=== PATIENT | male | born 1930 | race Caucasian/White ===

== ENCOUNTER 2016-07-28 00:06 | Inpatient (IN) | payer MEDICARE, BC ==
[2016-07-28] VITALS (9 sets, daily range): BP systolic 117–176; BP diastolic 69–107; PULSE 50–72; RESP 16–18; TEMP 95.3–98.1; O2SAT 95–100
[~2016-07-28] VITALS: Ht 175.3 cm; Wt 64.0 kg
[~2016-07-28 00:06] MED LIST: ASPI81 PO; CLIN1CAP6 PO; CLOP75 PO; DORZO2%O EACH EYE; LORTA5 PO; METO25 PO; METR-1 PO; PROT40TA PO; SIMV20TA PO; SUCR1S PO
[2016-07-28] MEDS ORDERED: MORP1TAB24 PO (00:11)
[2016-07-28] MEDS ORDERED: METO25TA3 PO (00:12)
[2016-07-28] MEDS ORDERED: OMEP20TA PO (00:12)
[2016-07-28] MEDS ORDERED: MORPHINE SULFATE 8 MG/ML INJ IV PUSH ONE (00:30)
--- NOTE | 2016-07-28 00:54 | RADRPT ---
EXAM DATE/TIME: 07/28/2016 00:30 [facility] COMPARISON: No previous studies available for comparison. INDICATIONS : Patient states they fell today getting off of toilet. Left hip pain. MEDICAL HISTORY : None. SURGICAL HISTORY : None. ENCOUNTER: Initial ACUITY: 1 day PAIN SCORE: 9/10 LOCATION: Left Hip FINDINGS: Intertrochanteric fracture of the hip is identified. The femoral head is not dislocated. No other fra ctures are identified. Soft tissue structures are intact. There are findings of previous left hernia repair. CONCLUSION: 1. Intertrochanteric fracture left hip Alirio Ibarra MD on July 28, 2016 at 0:52 Board Certified Radiologist. This report was verified electronically.
[2016-07-28] MEDS ORDERED: SODIUM CHLORIDE 0.9% FLUSH 5 ML FLUSH IVF PRN ×2 (01:15→12:30)
[2016-07-28 01:29] LABS: AUTOMATED NEUTROPHIL # 6.8 TH/MM3 (1.8-7.7); BASOPHIL % 0.5 % (0.0-2.0); EOSINOPHIL # 0.1 TH/MM3 (0-0.4); EOSINOPHIL % 1.2 % (0.0-4.0); HEMATOCRIT 28.5 % (39.0-51.0); LYMPH % 8.1 % (9.0-44.0); LYMPHOCYTE # 0.7 TH/MM3 (1.0-4.8); MEAN CELL VOLUME 77.8 FL (80.0-100.0); MEAN CORPUSCULAR HEMOGLOBIN 25.5 PG (27.0-34.0); MEAN CORPUSCULAR HGB CONC 32.7 % (32.0-36.0); MONO % 15.3 % (0.0-8.0); NEUT % 74.9 % (16.0-70.0); PLATELET COUNT 228 TH/MM3 (150-450); RED BLOOD COUNT 3.67 MIL/MM3 (4.50-5.90); RED CELL DISTRIBUTION WIDTH 25.7 % (11.6-17.2)
[2016-07-28 01:30] LABS: HEMO FLAGS AUTO DIFF
[2016-07-28 01:35] LABS: APTT (PATIENT) 31.4 SEC (24.3-30.1); INTERNATIONAL NORMALIZED RATIO 1.1 RATIO; PROTHROMBIN TIME - PATIENT 12.6 SEC (9.8-11.6)
[2016-07-28 01:42] LABS: BICARBONATE 26.6 MEQ/L (21.0-32.0); MAGNESIUM 1.7 MG/DL (1.5-2.5); POTASSIUM 4.1 MEQ/L (3.5-5.1)
[2016-07-28 02:07] LABS: ACANTHOCYTES OCC (NORMAL); OVALOCYTES 1+ (NORMAL); PLATELET ESTIMATE SMEAR NORMAL (NORMAL); PLATELET MORPHOLOGY NORMAL (NORMAL); SCAN/DIFF AUTO DIFF CONFIRMED
--- NOTE | 2016-07-28 02:15 | RADRPT ---
EXAM DATE/TIME: 07/28/2016 01:18 [facility] COMPARISON: CHEST SINGLE AP, March 06, 2016, 9:49. INDICATIONS : Evaluate for pneumonia, pneumothorax, and communicable disease. Pre op for left hip surgery. MEDICAL HISTORY : Hypertension. Bradycardia. 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 SURGICAL HISTORY : Pacemaker. Coronary artery stent. ENCOUNTER: Initial ACUITY: 1 day PAIN SCORE: 0/10 LOCATION: Bilateral chest FINDINGS: The cardiac silhouette is enlarged in transverse diameter. The lungs are free of acute parenchymal op acity. No effusions are identified. A bipolar pacemaker is in place via a left sided approach. CONCLUSION: 1. Cardiomegaly. No acute pulmonary disease. Alirio Ibarra MD on July 28, 2016 at 2:13 Board Certified Radiologist. This report was verified electronically.
[2016-07-28] MEDS ORDERED: SODIUM CHLORIDE 0.9% FLUSH 5 ML FLUSH FLUSH PRN (03:00)
[2016-07-28] MEDS ORDERED: ONDANSETRON HCL 4 MG/2 ML VIAL IVP PRN ×2 (03:00→12:30)
[2016-07-28] MEDS ORDERED: NALOXONE HCL 0.4 MG/ML AMP IV PRN (03:00)
--- NOTE | 2016-07-28 04:58 | PD ---
HPI Chief Complaint: Fall Time Seen by Provider: 00:14 Travel History International Travel<30 days: No Contact w/Intl Traveler<30days: No Traveled to known affect area: No History of Present Illness HPI Patient is an 86-year-old male presents to the emergency department with complaints of left hip pain. Patient states he was transferring off the toilet and fell onto his left hip and is benign unable to ambulate since. Patient has significant history of liver cancer and is on hospice. Patient denies any head neck back abdomen chest trauma. Symptoms onset just prior to arrival. Pain is relatively controlled as he took his home medications prior to arrival. PFSH Past Medical History Hx Anticoagulant Therapy: Yes (PLAVIX) Anemia: Yes Asthma: No Autoimmune Disease: No Heart Rhythm Problems: Yes (BRADYCARDIA- pacer place for this) Cancer: Yes (SKIN CA- head/scalp, right ear) Cardiac Catheterization: Yes Cardiovascular Problems: Yes (htn ) High Cholesterol: Yes Chemotherapy: No Chest Pain: Yes Congestive Heart Failure: No COPD: No Cerebrovascular Accident: Yes (tia's) Coronary Artery Disease: Yes Diabetes: No Diminished Hearing: Yes (wears hearing aids ) Gastrointestinal Disorders: Yes GERD: Yes Glaucoma: Yes Hepatitis: No Hiatal Hernia: Yes (GERD) Hypertension: Yes Immune Disorder: No Inguinal Hernia: Yes (bilat repair) Kidney Stones: No Medical other: Yes (HX ULCER,EGD WITH DIALTION) Musculoskeletal: No Neurologic: No Psychiatric: No Reproductive: No Respiratory: No Migraines: No Myocardial Infarction: No Radiation Therapy: No Renal Failure: No Seizures: No Sleep Apnea: No Thyroid Disease: No Ulcer: Yes Influenza Vaccination: No Past Surgical History Abdominal Surgery: Yes (HEMIGASTRECTOMY, HERNIA REPAIR X 5, BILATERAL) Body Medical Devices: PACEMAKER- Cardiac Surgery: Yes (CARDIAC STENTS,X2) Coronary Stent: Yes (X2 ?) Ear Surgery: No Endocrine Surgery: No Eye Surgery: Yes (cataract both eyes) Genitourinary Surgery: Yes (prostate surgery- hx of it being enlarged) Gynecologic Surgery: No Joint Replacement: No Neurologic Surgery: Yes (LAMINECTOMY) Oral Surgery: Yes (DEVIATED SEPTUM) Pacemaker: Yes (medtronic placed 11/2010 model # ADDR01) Thoracic Surgery: No Tonsillectomy: Yes Other Surgery: Yes (right hand surgery) Social History Alcohol Use: Yes (WINE DAILY) Tobacco Use: No (50+ yrs ago quit cigs 3 ppd) Substance Use: No Allergies-Medications (Allergen,Severity, Reaction): Coded Allergies: No Known Allergies (Verified , 07/28/16) Reported Meds & Prescriptions Reported Meds & Active Scripts Active Reported Omeprazole 20 Mg Tab 20 Mg PO DAILY Morphine ER (Morphine Sulfate) 15 Mg Tab 15 Mg PO Q8H Review of Systems Except as stated in HPI: all other systems reviewed are Neg Physical Exam Narrative GENERAL: Well-developed, thin in no apparent distress. SKIN: Warm and dry. HEAD: Atraumatic. Normocephalic. EYES: Pupils equal and round. No scleral icterus. No injection or drainage. ENT: No nasal bleeding or discharge. Mucous membranes pink and moist. NECK: Trachea midline. No JVD. CARDIOVASCULAR: Regular rate and rhythm. No murmur appreciated. RESPIRATORY: No accessory muscle use. Clear to auscultation. Breath sounds equal bilaterally. GASTROINTESTINAL: Abdomen soft, non-tender, nondistended. Hepatic and splenic margins not palpable. MUSCULOSKELETAL: No obvious deformities. No clubbing. No cyanosis. No edema. Patient has no significant tenderness on the left hip nor pelvis. Right hip is normal. Knees normal bilateral ankles normal bilateral. Pulse motor and sensory intact distally in compartment soft. CTL and S spine are atraumatic, No tenderness no step-off. Pelvis is stable. Patient does have significant tenderness of the hip joint on external and internal rotation. Flexion and extension are deferred at this time. NEUROLOGICAL: Awake and alert. No obvious cranial nerve deficits. Motor grossly within normal limits. Normal speech. PSYCHIATRIC: Appropriate mood and affect; insight and judgment normal. Data Data Last Documented VS Vital Signs Date Time Temp Pulse Resp B/P Pulse Ox O2 Delivery O2 Flow Rate FiO2 07/28/16 01:11 50 16 139/77 96 Room Air 07/28/16 00:13 98.1 Orders Hip, Uni(Ap&Lat) W Ap Pelvis (07/28/16 ) Morphine Inj (Morphine Inj) (07/28/16 00:30) Electrocardiogram (07/28/16 01:02) Basic Metabolic Panel (Bmp) (07/28/16 01:02) Complete Blood Count With Diff (07/28/16 01:02) Magnesium (Mg) (07/28/16 01:02) Prothrombin Time / Inr (Pt) (07/28/16 01:02) Act Partial Throm Time (Ptt) (07/28/16 01:02) Chest, Single Ap (07/28/16 01:02) Ecg Monitoring (07/28/16 01:02) Bilateral Bp Monitoring (07/28/16 01:02) Iv Access Insert/Monitor (07/28/16 01:02) Oximetry (07/28/16 01:02) Oxygen Administration (07/28/16 01:02) Sodium Chloride 0.9% Flush (Ns Flush) (07/28/16 01:15) Admit Order (Ed Use Only) (07/28/16 ) Admit To Inpatient (07/28/16 ) Vital Signs (Adult) Q4H (07/28/16 02:57) Activity Bed Rest (07/28/16 02:57) ^ Executive Pastry Chef / Telemetry .CONTINUOUS (07/28/16 02:57) Diet Npo (07/28/16 Breakfast) Sodium Chloride 0.9% Flush (Ns Flush) (07/28/16 03:00) Sodium Chloride 0.9% Flush (Ns Flush) (07/28/16 09:00) Ondansetron Inj (Zofran Inj) (07/28/16 03:00) Case Management Consult (07/28/16 02:57) Scd Bilateral/Knee High SOULEYMANE.BID (07/28/16 02:57) Naloxone Inj (Narcan Inj) (07/28/16 03:00) Inpatient Certification (07/28/16 ) Consult Orthopedic (07/28/16 ) Labs Laboratory Tests Test 07/28/16 01:15 White Blood Count 9.0 TH/MM3 Red Blood Count 3.67 MIL/MM3 Hemoglobin 9.3 GM/DL Hematocrit 28.5 % Mean Corpuscular Volume 77.8 FL Mean Corpuscular Hemoglobin 25.5 PG Mean Corpuscular Hemoglobin 32.7 % Concent Red Cell Distribution Width 25.7 % Platelet Count 228 TH/MM3 Mean Platelet Volume 8.6 FL Neutrophils (%) (Auto) 74.9 % Lymphocytes (%) (Auto) 8.1 % Monocytes (%) (Auto) 15.3 % Eosinophils (%) (Auto) 1.2 % Basophils (%) (Auto) 0.5 % Neutrophils # (Auto) 6.8 TH/MM3 Lymphocytes # (Auto) 0.7 TH/MM3 Monocytes # (Auto) 1.4 TH/MM3 Eosinophils # (Auto) 0.1 TH/MM3 Basophils # (Auto) 0.0 TH/MM3 CBC Comment AUTO DIFF Differential Comment AUTO DIFF CONFIRMED Platelet Estimate NORMAL Platelet Morphology Comment NORMAL Ovalocytes 1+ Acanthocytes OCC Prothrombin Time 12.6 SEC Prothromb Time International 1.1 RATIO Ratio Activated Partial 31.4 SEC Thromboplast Time Sodium Level 137 MEQ/L Potassium Level 4.1 MEQ/L Chloride Level 100 MEQ/L Carbon Dioxide Level 26.6 MEQ/L Anion Gap 10 MEQ/L Blood Urea Nitrogen 12 MG/DL Creatinine 0.96 MG/DL Estimat Glomerular Filtration 74 ML/MIN Rate Random Glucose 93 MG/DL Calcium Level 9.4 MG/DL Magnesium Level 1.7 MG/DL MDM Medical Decision Making Medical Screen Exam Complete: Yes Emergency Medical Condition: Yes Interpretation(s) EKG shows atrial and ventricular pacemaker. No concerning ST T changes. Differential Diagnosis Hip fracture, pelvis fracture, hip contusion. Narrative Course Patient room in the emergency department, x-rays confirm an intertrochanteric fracture of the left femur. He was given morphine on arrival. It is fairly comfortable. Preoperative labs are being obtained as well as an EKG. Patient was discussed with Dr. Ayala for admission, ultimately discussed with Dr. Dean who was seen consultation later this morning. Justin Cartagena MD Jul 28, 2016 04:58
[2016-07-28] MEDS ORDERED: MORPHINE SULFATE 4 MG/ML INJ IV PUSH PRN (05:00)
--- NOTE | 2016-07-28 07:20 | PD.ORT.PN ---
Subjective Subjective Remarks s/p fall at home. left hip pain. history of terminal liver cancer. patient has originally stated he does not want any surgery due to end stage liver cancer. Objective Vitals Vital Signs Date Time Temp Pulse Resp B/P Pulse Ox O2 Delivery O2 Flow Rate FiO2 07/28/16 05:55 97.3 72 18 119/73 95 07/28/16 04:33 67 16 117/75 98 Room Air 07/28/16 01:11 50 16 139/77 96 Room Air 07/28/16 01:10 97 Room Air 07/28/16 01:10 97 Room Air 07/28/16 00:13 98.1 68 18 176/107 97 Result Diagram: 07/28/16 0115 07/28/16 0115 Other Results Laboratory Tests Test 07/28/16 01:15 Prothrombin Time 12.6 SEC (9.8-11.6) Prothromb Time International 1.1 RATIO Ratio Imaging Last 24 hours Impressions Chest X-Ray 07/28/16 0102 Signed Impressions: Service Date/Time: Thursday, July 28, 2016 01:18 - CONCLUSION: 1. Cardiomegaly. No acute pulmonary disease. Alirio Ibarra MD Hip and Pelvis X-Ray 07/28/16 0000 Signed Impressions: Service Date/Time: Thursday, July 28, 2016 00:30 - CONCLUSION: 1. Intertrochanteric fracture left hip Alirio Ibarra MD Objective Remarks LLE: pain in hip with motion. nvi Assessment & Plan Assessment and Plan 1) Left Intertroch Hip fx -had long discussion with patient regarding treatment options -with his end stage liver cancer, the choice for surgical management is a quality of life decision -explained that with surgery he would have less pain and ability to mobilize. without surgery he would be bed ridden -patient to discuss with and decide today -sign consents and plan for potential surgery today if patient decides to proceed Malachi Chávez Jul 28, 2016 07:20
[2016-07-28] MEDS: SODIUM CHLORIDE 0.9% FLUSH 5 ML FLUSH FLUSH SCH (09:00)
--- NOTE | 2016-07-28 09:52 | MB ---
cc: JACOBSJOE DATE OF CONSULTATION: 07/28/2016 REASON FOR CONSULTATION: Left hip intertrochanteric fracture. HISTORY Rodrigue is a pleasant 86-year-old male who had a history of liver cancer. He is under Hospice care. He was getting off the toilet when he lost his balance, he fell forward and landed on his left hip. He had immediate left hip pain. He was unable to stand or ambulate. He normally ambulates independently with use of a walker or cane. She had no hip pain prior to his fall. He presented to the emergency room where x-rays revealed a displaced left hip intertrochanteric fracture. Pain is worse with movement and is improved with rest. PAST MEDICAL HISTORY MEDICATIONS Medications included 1. Plavix. 2. Morphine. 3. Omeprazole. ALLERGIES NO KNOWN DRUG ALLERGIES. ILLNESSES 1. Coronary artery disease 2. Reflux 3. Hearing loss 4. History of cerebrovascular accident. 5. History of liver cancer. SURGERIES 1. A cardiac catheterization with stent placement 2. Pacemaker placement 3. Bilateral hernia repair 4. Hemigastrectomy 5. Cataract surgery. 6. Lumbar laminectomy. SOCIAL HISTORY The patient drinks wine. He denies tobacco or drug use. FAMILY HISTORY: Family history is noncontributory REVIEW OF SYSTEMS The patient denies headache, visual changes, neck pain, chest pain, shortness of breath, abdominal pain, nausea, vomiting or recent weight loss. He does have significant left hip pain. Pain is worse with movement. PHYSICAL EXAMINATION IN GENERAL: The patient is a thin 86-year male who is awake and alert. He is alert and x3. VITAL SIGNS: Temperature 97.9, pulse 69, respirations 18, blood pressure 132/95, O2 sat 95% on room air. HEAD, EYES, EARS, NOSE, AND THROAT: Head: The patient is normocephalic. Pupils are equal. NECK: Soft, nontender. Trachea is midline. ABDOMEN: The abdomen is soft, nontender, nondistended. EXTREMITIES: Examination of bilateral upper extremities reveals no pain with shoulder, elbow or wrist motion is intact sensation all fingers is good cap refill fingers. Skin is intact. Radial pulses are palpable. Examination of right leg reveals no significant pain with hip, knee or ankle motion. Skin is intact. Dorsalis pedis pulses palpable. Sensation is grossly intact. Examination of her left leg reveals pain with any hip motion. Skin is intact. He has no tenderness on his knee tibia or ankle. Skin and dorsalis pedis pulses palpable. Sensation is grossly intact, normal left foot. X-RAYS X-rays of left hip were reviewed x-rays revealed displaced left hip intertrochanteric fracture. IMPRESSION 1. Coronary artery disease 2. Displaced left femoral neck fracture. 3. Liver cancer. PLAN Treatment options were discussed with the patient. At this point the patient understands that he has a terminal liver cancer. He states that he his expected life expectancy is approximately 6 months. I explained to him that without surgery of fracture would not be able to heal. He would be unable to ambulate have difficulty even transferring to a wheelchair secondary to pain. Surgical options would include reduction intramedullary nail fixation. Risks of surgery include bleeding, infection, injury to his blood vessels, nonunion, malunion, painful hardware as well as medical complications including blood clot, stroke, heart attack and were discussed. The patient understands that he would likely have less pain and increased mobility with surgery. He understands that he has a moderate high risk for surgery. He would like to proceed with surgery to help with pain relief as well as improve his quality of life that he has remaining. I felt this was a reasonable option. All questions were answered. A mid-level provider in my office, nurse practitioner or PA, may see this patient on a follow-up basis and continue to implement the objective of this plan including: Starting or adjusting medications, injections of muscle, tendon, bursa or joints, cast application, orthotic or brace application, physical therapy, further radiographic studies including x-ray, MRI, CT, ultrasounds or bone scan, vascular studies, neurologic studies, or other specialist consultations, and proceeding with surgical management as appropriate. Joe MD CHARLOTTE Martinez/saul /9:27 AM /9:43 AM
[2016-07-28] MEDS ORDERED: PROPOFOL 200 MG/20 ML AMP IV ONE (10:27)
[2016-07-28] MEDS ORDERED: ePHEDrine/NS 50 MG/5 ML SYR IV ONE (10:27)
[2016-07-28] MEDS ORDERED: PHENYLEPH/NS 1000 MCG/10 ML SYR IV ONE (10:27)
[2016-07-28] MEDS ORDERED: ONDANSETRON HCL 4 MG/2 ML VIAL IV PUSH ONE (10:27)
[2016-07-28] MEDS ORDERED: NEOSTIGMINE 3 MG/3 ML SYR IV ONE (10:27)
[2016-07-28] MEDS ORDERED: VANCOMYCIN HCL 1000 MG VIAL ONE (11:07)
[2016-07-28] MEDS ORDERED: GENTAMICIN SULFATE 80 MG/2 ML VIAL ONE (11:07)
[2016-07-28] MEDS ORDERED: ceFAZolin INJ 1,000 MG VIAL ONE (11:07)
[2016-07-28] MEDS ORDERED: BUPIVACAINE/EPINEPHRINE 0.25% PF 10 ML VIAL ONE (11:07)
[2016-07-28] MEDS ORDERED: SODIUM CHLOR 0.9% 250 ML INJ 250 ML ONE (11:07)
[2016-07-28] MEDS ORDERED: HYDR-3288 PO (12:07)
[2016-07-28] MEDS ORDERED: XARE10TA PO (12:07)
[2016-07-28] MEDS ORDERED: diphenhydrAMINE HCL 25 MG CAP PO PRN (12:30)
--- NOTE | 2016-07-28 12:32 | PD.OP ---
cc: Joe Rogers MD Operative Report Date of Surgery: Jul 28, 2016 Preoperative Diagnosis: Left hip intertrochanteric fracture Metastatic liver cancer Postoperative Diagnosis: Procedure: Left hip reduction and intramedullary nail fixation Anesthesia: Gen. Surgeon: Joe Rogers Enforcement Safety Officer(s): ERIK Ng PA-C The surgical procedure was assisted by my physician career services assistant. My P.A. presence was necessary throughout this case for the manipulation and positioning of the surgical extremity. My P.A. was assisting me throughout the duration of this procedure. The skill set of a physician career services assistant was medically necessary to complete this procedure. During the surgical case the elevator service technician was working at the back table and the physician career services assistant was directly assisting me. Operation and Findings: Implants used: 11 mm x [420]mm 130 Synthes TFNA troch nail Plan of activity: Weight-bear as tolerated Patient was seen and evaluated preoperatively. The patient has significant hip pain from proximal femur fracture. The risk and benefits of surgery were discussed in depth with the patient to include bleeding, infection, nonunion, malunion, need for hip replacement, painful hardware, as well as medical competitions including blood clots, stroke, heart attack, and . Informed consent was obtained. Operative site was marked. Patient was brought to the operating room and placed on fracture table. IV sedation was administered by anesthesiologist. Timeout procedure was performed. Hip and leg were prepped with alcohol followed by DuraPrep and draped in the usual sterile fashion. IV antibiotics were given prior to incision. Procedure began with reduction of fracture. Traction was applied. The leg was manipulated to achieve reduction. Excellent reduction was achieved. Fluoroscopy was used to confirm reduction. A three inch incision was made proximal to the trochanter. Subcutaneous tissue was dissected bluntly. Guidepin was placed at the tip of the trochanter and advanced into the femoral canal. Fluoroscopy confirmed appropriate guidepin placement. A opening reamer was placed over the guidepin. A long ball tipped guide pin was now placed down the femoral canal into the center of the distal femur. The nail length was now measured. Fluoroscopy confirmed appropriate guidepin placement. Flexible reamers were now passed over the guidepin to ream the intramedullary canal. The Synthes TFNA nail was attached to the insertion handle. Nail was now placed over the guidepin into the femoral canal. Fluoroscopy confirmed appropriate nail placement. A second incision was made over the lateral thigh. Cannulas were placed through the insertion handle down to the femur. Guidepin was now placed through the femoral nail into the center of the femoral head. Fluoroscopy confirmed appropriate guidepin placement. Screw length was measured. Cannulated drill was placed over the guidepin. Appropriate length lag screw was now placed. Traction was released and compression was applied. The set screw was now tightened in dynamic mode. Next, using perfect united keetoowah technique two distal interlocking screws were placed. Screw holes were predrilled and screw lengths were measured. Final fluoroscopy revealed well aligned fracture with well-placed hardware. Incision was closed with 3-0 Vicryl and miko. Sterile dressings were applied. Patient was awakened and transferred to recovery room. Joe Rogres MD Jul 28, 2016 12:32
[2016-07-28] MEDS ORDERED: fentaNYL CITRATE 250 MCG/5 ML AMP ONE (12:59)
[2016-07-28] MEDS ORDERED: DO NOT ADM ANY ANTICOAGULANT DRUGS XX PRN (13:15)
--- NOTE | 2016-07-28 13:38 | RADRPT ---
EXAM DATE/TIME: 07/28/2016 12:23 [facility] COMPARISON: CHEST SINGLE AP, July 28, 2016, 1:18. INDICATIONS : ORIF Left femur IM nail. MEDICAL HISTORY : None. SURGICAL HISTORY : None. ENCOUNTER: Subsequent ACUITY: 1 day PAIN SCORE: Non-responsive. LOCATION: Left Femur. FINDINGS: Multiple views of the left hip demonstrate a intertrochanteric fracture stabilized by intramedullary xiao and screw. Good alignment. CONCLUSION: Internal fixation of a left intertrochanteric fracture with good alignment.. Yolanda Dwyer MD on July 28, 2016 at 13:36 Board Certified Radiologist. This report was verified electronically.
[2016-07-28] MEDS ORDERED: ERGOCALCIFEROL (VIT D2) 50,000 UNIT CAP PO ONE (14:00)
[2016-07-28] MEDS: CALCIUM/VITAMIN D 250 MG/125 U TAB PO SCH ×2 (14:36→17:29)
[2016-07-28] MEDS: ACETAMINOPHEN/HYDROcodone 325 MG/7.5 MG TAB PO PRN (14:36)
--- NOTE | 2016-07-28 15:38 | HHI.HP ---
HPI Service [facility] Primary Care Physician [facility] Admission Diagnosis Left Hip Fx Diagnoses: Chief Complaint: fall, left hip fracture Travel History International Travel<30 Days: No Contact w/Intl Traveler <30 Da: No Traveled to Known Affected Are: No History of Present Illness 86-year-old male with history of liver cancer on hospice, bradycardia s/p pacemaker, HTN, TIAs, CAD, [place], GERD, presents after a fall last night 07/27/16. The patient reports he was getting up from using the toilet, when he fell forward, landed directly on his left hip. Denies any lightheadedness, dizziness , loss of consciousness, or head injury. He had immediate left hip pain, and was unable to get off the floor. He states he tried to ambulate, was dragging himself across the floor, but could not get up therefore his called 911. Upon arrival to the ED, hip xray showed intertrochanteric fracture of the left hip. Orthopedics surgery was consulted, the patient will proceed with ORIF today. He has received IV morphine for pain control and currently the patient denies any pain. Discussed with hospice at bedside, patient will be removing himself from hospice at this time, with plans to return to hospice after recovering from hip surgery. He has no other medical complaints at this time. Denies any symptoms of recurrent chest pains/angina or shortness of breath. He has chronic abdominal distention secondary to liver cancer. Review of Systems Constitutional: DENIES: Fever, Chills, Dizziness Endocrine: DENIES: Polydipsia, Polyuria, Polyphagia Eyes: DENIES: Blurred vision, Diplopia, Double Vision Ears, nose, mouth, throat: DENIES: Throat pain, Ear Pain, Odynophagia Respiratory: DENIES: Cough, Sputum production, Shortness of breath Cardiovascular: DENIES: Chest pain, Palpitations, Syncope, Dyspnea on Exertion , Lower Extremity Edema Gastrointestinal: DENIES: Abdominal pain, Constipation, Diarrhea, Nausea, Vomiting Genitourinary: DENIES: Urinary incontinence, Urgency, Dysuria Musculoskeletal: DENIES: Back pain, Neck pain Integumentary: DENIES: Pruritus, Rash Hematologic/lymphatic: DENIES: Bruising, Lymphadenopathy Immunologic/allergic: DENIES: Eczema, Urticaria Neurologic: DENIES: Abnormal gait, Headache, Localized weakness Psychiatric: DENIES: Anxiety, Depression Past Family Social History Past Medical History liver cancer bradycardia hypertension TIAs (never CVA) CAD QAGAN [place]AY[place]GIN GERD Past Surgical History hemigastrectomy vagotomy EGD with dilatation bilateral inguinal hernia repair x5 pacemaker placement cardiac catheterization with stent placement x2 cataract surgery laminectomy deviated septum repair tonsillectomy right hand surgery Reported Medications Omeprazole 20 Mg Tab 20 Mg PO DAILY Morphine ER (Morphine Sulfate) 15 Mg Tab 15 Mg PO Q8H Allergies: Coded Allergies: No Known Allergies (Verified , 07/28/16) Active Ordered Medications Current Medications Medications (Trade) Dose Ordered Sig/Zully Route Start Time Stop Time Status Last Admin (NS Flush) 2 ml UNSCH PRN FLUSH 07/28/16 03:00 (NS Flush) 2 ml BID FLUSH 07/28/16 09:00 (Narcan Inj) 0.4 mg UNSCH PRN IV 07/28/16 03:00 (Morphine Inj) 2 mg Q4HR PRN IV PUSH 07/28/16 05:00 07/28/16 03:20 Enoxaparin Sodium 30 mg 30 mg Q24H SQ 07/29/16 12:00 (Ancef Inj/NS Inj) 100 ml @ 200 mls/hr Q8H IV 07/28/16 16:00 07/29/16 08:29 (Zofran Inj) 4 mg Q4H PRN IVP 07/28/16 12:30 (Oscal-D 250-125) 250 mg TID PO 07/28/16 13:00 07/28/16 14:36 (Benadryl) 25 mg Q6H PRN PO 07/28/16 12:30 ([place] 7.5-325 Mg) 1 tab Q3H PRN PO 07/28/16 12:30 07/28/16 14:36 (Morphine Inj) 3 mg Q3H PRN IV PUSH 07/28/16 12:30 (Vitamin D3) 5,000 units DAILY PO 07/29/16 09:00 Miscellaneous Information ALL NURSING DEPARTME... UNSCH PRN XX 07/28/16 13:15 07/29/16 13:14 Family History Mother and father both alcoholics, Social History Smoked tobacco 3 PPD, started age 18, quit 58 years ago Prior occasional alcohol use, none in the past 5months Denies any illicit drug use Physical Exam Vital Signs Vital Signs Date Time Temp Pulse Resp B/P Pulse Ox O2 Delivery O2 Flow Rate FiO2 07/28/16 14:10 Nasal Cannula 2.00 07/28/16 13:45 97.5 62 13 136/72 100 Nasal Cannula 2 07/28/16 13:30 65 13 13/74 100 Nasal Cannula 2 07/28/16 13:15 61 13 151/83 99 Nasal Cannula 2 07/28/16 13:00 64 13 138/74 99 Nasal Cannula 3 07/28/16 12:53 97.7 66 13 150/78 99 Nasal Cannula 3 07/28/16 07:42 97.9 69 18 132/95 95 07/28/16 05:55 97.3 72 18 119/73 95 07/28/16 04:33 67 16 117/75 98 Room Air 07/28/16 01:11 50 16 139/77 96 Room Air 07/28/16 01:10 97 Room Air 07/28/16 01:10 97 Room Air 07/28/16 00:13 98.1 68 18 176/107 97 Physical Exam GENERAL: Well-nourished, well-developed elderly male patient in [facility]. SKIN: Warm and dry. No rash. HEAD: Normocephalic. Atraumatic. EYES: Pupils equal and round. No scleral icterus. No injection or drainage. ENT: No nasal bleeding or discharge. Mucous membranes pink and moist. NECK: Supple. Trachea midline. CARDIOVASCULAR: Regular rate and rhythm. S1, S2 noted. No murmur appreciated. RESPIRATORY: No accessory muscle use. Clear to auscultation. Breath sounds equal bilaterally. GASTROINTESTINAL: Abdomen soft, non-tender, moderately distended. Normoactive bowel sounds x4. MUSCULOSKELETAL: No obvious deformities. Extremities without clubbing, cyanosis , or edema. Left hip examination deferred given known fracture. NEUROLOGICAL: Awake and alert. No obvious cranial nerve deficits. Motor grossly within normal limits. 5/5 muscle strength in bilateral upper and lower extremities. Normal speech. PSYCHIATRIC: Appropriate mood and affect; insight and judgment normal. Laboratory Laboratory Tests Test 07/28/16 01:15 White Blood Count 9.0 Red Blood Count 3.67 Hemoglobin 9.3 Hematocrit 28.5 Mean Corpuscular Volume 77.8 Mean Corpuscular Hemoglobin 25.5 Mean Corpuscular Hemoglobin 32.7 Concent Red Cell Distribution Width 25.7 Platelet Count 228 Mean Platelet Volume 8.6 Neutrophils (%) (Auto) 74.9 Lymphocytes (%) (Auto) 8.1 Monocytes (%) (Auto) 15.3 Eosinophils (%) (Auto) 1.2 Basophils (%) (Auto) 0.5 Neutrophils # (Auto) 6.8 Lymphocytes # (Auto) 0.7 Monocytes # (Auto) 1.4 Eosinophils # (Auto) 0.1 Basophils # (Auto) 0.0 CBC Comment AUTO DIFF Differential Comment AUTO DIFF CONFIRMED Platelet Estimate NORMAL Platelet Morphology Comment NORMAL Ovalocytes 1+ Acanthocytes OCC Prothrombin Time 12.6 Prothromb Time International 1.1 Ratio Activated Partial 31.4 Thromboplast Time Sodium Level 137 Potassium Level 4.1 Chloride Level 100 Carbon Dioxide Level 26.6 Anion Gap 10 Blood Urea Nitrogen 12 Creatinine 0.96 Estimat Glomerular Filtration 74 Rate Random Glucose 93 Calcium Level 9.4 Magnesium Level 1.7 25-Hydroxy Vitamin D Total 20.7 Result Diagram: 07/28/16 0115 07/28/16 0115 Imaging Last Impressions Chest X-Ray 07/28/16 0102 Signed Impressions: Service Date/Time: Thursday, July 28, 2016 01:18 - CONCLUSION: 1. Cardiomegaly. No acute pulmonary disease. Alirio Ibarra MD Hip and Pelvis X-Ray 07/28/16 0000 Signed Impressions: Service Date/Time: Thursday, July 28, 2016 00:30 - CONCLUSION: 1. Intertrochanteric fracture left hip Alirio Ibarra MD Femur X-Ray 07/28/16 0000 Signed Impressions: Service Date/Time: Thursday, July 28, 2016 12:23 - CONCLUSION: Internal fixation of a left intertrochanteric fracture with good alignment.. Yolanda Dwyer MD Assessment and Plan Assessment and Plan 86-year-old male with history of liver cancer on hospice, bradycardia s/p pacemaker, HTN, TIAs, CAD, [place], GERD, presents after a fall last night 07/27/16. Left Hip Fracture: s/p fall 07/27/16. Hip xray upon arrival showed left intertrochanteric fracture. -Consulted ortho -s/p left hip reduction and intramedullary nail fixation today 07/28/16 -Pain control with IV morphine prn -Lovenox for DVT prophylaxis per ortho, plan to d/c on Xarelto -PT consulted, patient will be WBAT -needs placement, consider [facility], case management consulted Liver Cancer: presented on hospice, however the patient is now removing himself off hospice for hip surgery -patient's end stage liver cancer remains unchanged and patient would likely benefit from going back on hospice after recovering from hip surgery GERD: chronic, continue PPI Bradycardia s/p Pacer, HTN, CAD: all chronic, continue patient's metoprolol with hold parameters. DVT Prophylaxis: Lovenox Written by Tammi Chandler, acting as scribe for Dr. Larsen on 07/28/16 at 10:25. Code Status DNR Discussed Condition With Patient, Patient's at bedside, RN Physician Certification 2 Midnight Certification Type: Admission for Inpatient Services Order for Inpatient Services The services are ordered in accordance with Medicare regulations or non- Medicare payer requirements, as applicable. In the case of services not specified as inpatient-only, they are appropriately provided as inpatient services in accordance with the 2-midnight benchmark. Estimated LOS (days): 3 days is the estimated time the patient will need to remain in the hospital, assuming treatment plan goals are met and no additional complications. Post-Hospital Plan: SNF Medical Decision Making MDM Remarks The documentation accurately reflects the work performed [id number] by me, Dr. Larsen on 07/28/16 at 10:25. Tammi Chandler PA-C Jul 28, 2016 15:38 Ethan Larsen MD Aug 07, 2016 17:58
[2016-07-28] MEDS ORDERED: SODIUM CHLORIDE 0.9% FLUSH 5 ML FLUSH IVF SCH (21:00)
--- NOTE | 2016-07-28 22:40 | EKG ---
Date Performed: 07/28/2016 Time Performed: 01:20:18 PTAGE: 86 years EKG: ELECTRONIC ATRIAL PACEMAKER ELECTRONIC VENTRICULAR PACEMAKER PROBABLE PACEMAKER FUSION Comp ared to previous tracing, the QRS complex is narrowed as there appears to be, at least, partial captu re of the ventricles from sinus activity but there is now evidence of pacemaker fusion. Reprogrammin g of the device may be useful. With a difference in pacing the tracings are not directly comparable. ABNORMAL RHYTHM ECG PREVIOUS TRACING : 03/06/2016 09.16 DOCTOR: Bethany Davis Interpretating Date/Time 07/28/2016 22:39:18
[2016-07-29] VITALS (8 sets, daily range): BP systolic 114–167; BP diastolic 64–90; PULSE 61–87; RESP 16–18; TEMP 97–98.5; O2SAT 93–98
[2016-07-29] MEDS: ACETAMINOPHEN/HYDROcodone 325 MG/7.5 MG TAB PO PRN ×4 (00:44→21:46)
[2016-07-29 07:26] LABS: HEMATOCRIT 26.8 % (39.0-51.0)
[2016-07-29 07:31] LABS: REVIEW FLAG FINAL
[2016-07-29] MEDS: CHOLECALCIFEROL (VIT D3) 5000 UNIT CAP PO SCH (08:41)
[2016-07-29] MEDS: PANTOPRAZOLE SOD 20 MG DELAYED RELEASE TAB PO SCH (08:41)
[2016-07-29] MEDS: METOPROLOL TARTRATE 25 MG TAB PO SCH (08:41)
[2016-07-29] MEDS: CALCIUM/VITAMIN D 250 MG/125 U TAB PO SCH ×3 (08:41→18:29)
[2016-07-29] MEDS: SODIUM CHLORIDE 0.9% FLUSH 5 ML FLUSH FLUSH SCH ×2 (08:47→21:47)
[2016-07-29] MEDS: ENOXAPARIN SODIUM 30 MG/0.3 ML SYRINGE SQ SCH (12:32)
--- NOTE | 2016-07-29 13:50 | PD.ORT.PN ---
Subjective Subjective Remarks Patient comfortable. Pain controlled. OOB sitting in recliner. Objective Vitals Vital Signs Date Time Temp Pulse Resp B/P Pulse Ox O2 Delivery O2 Flow Rate FiO2 07/29/16 12:00 75 07/29/16 11:00 98 Nasal Cannula 2.00 07/29/16 08:00 97.4 84 18 167/85 96 07/29/16 05:07 96 Nasal Cannula 2.00 07/29/16 04:34 98.5 81 16 125/65 96 07/29/16 00:34 98.2 87 16 114/64 96 07/28/16 20:28 95.3 57 17 132/70 98 07/28/16 18:36 Nasal Cannula 2.00 07/28/16 16:00 96.0 64 16 123/69 98 07/28/16 14:30 96.6 62 16 140/75 100 07/28/16 14:10 Nasal Cannula 2.00 I/O 07/28/16 07/28/16 07/28/16 07/29/16 07/29/16 07/29/16 07:00 15:00 23:00 07:00 15:00 23:00 Intake Total 925 ml 340 ml 120 ml Output Total 100 ml 75 ml 500 ml Balance 825 ml 265 ml -380 ml Intake Oral 250 ml 240 ml 120 ml IV Total 75 ml 100 ml Other 600 ml Output Urine Total 75 ml 500 ml Estimated Blood Loss 100 ml # Voids 0 # Bowel Movements 1 0 0 0 Result Diagram: 07/29/16 0646 07/28/16 0115 Imaging Last 24 hours Impressions Chest X-Ray 07/28/16 0102 Signed Impressions: Service Date/Time: Thursday, July 28, 2016 01:18 - CONCLUSION: 1. Cardiomegaly. No acute pulmonary disease. Alirio Ibarra MD Hip and Pelvis X-Ray 07/28/16 0000 Signed Impressions: Service Date/Time: Thursday, July 28, 2016 00:30 - CONCLUSION: 1. Intertrochanteric fracture left hip Alirio Ibarra MD Objective Remarks Left Hip dressing C/D/I calves soft negative Sophia's NVI Assessment & Plan Assessment and Plan POD #1 Left hip reduction and intramedullary nail fixation Pain management - [place] DVT prophylaxis - Lovenox Physical therapy - WBAT D/C planning - anticipating SNF Polo Morales Jul 29, 2016 13:50
[2016-07-29] MEDS ORDERED: PILL SPLITTER OTHER PRN (17:15)
--- NOTE | 2016-07-29 17:16 | HHI.PR ---
Subjective Remarks Follow up for left hip fracture s/p fixation 07/28. The patient is doing well, seen sitting upright in bedside recliner. He complains of feeling nauseous after eating a small amount of his meal. He denies odynophagia, but does have some dysphagia. He was tolerating soft foods at home prior to arrival, main diet consisted of ramen noodles. RN reports straight cath last night secondary to not urinating after surgery and was unable to obtain bladder scanner for evaluation, cath returned 500cc of urine. Patient now voiding spontaneously. Objective Vitals Vital Signs Date Time Temp Pulse Resp B/P Pulse Ox O2 Delivery O2 Flow Rate FiO2 07/29/16 12:00 75 07/29/16 11:00 98 Nasal Cannula 2.00 07/29/16 08:00 97.4 84 18 167/85 96 07/29/16 05:07 96 Nasal Cannula 2.00 07/29/16 04:34 98.5 81 16 125/65 96 07/29/16 00:34 98.2 87 16 114/64 96 07/28/16 20:28 95.3 57 17 132/70 98 07/28/16 18:36 Nasal Cannula 2.00 I/O 07/28/16 07/28/16 07/28/16 07/29/16 07/29/16 07/29/16 07:00 15:00 23:00 07:00 15:00 23:00 Intake Total 925 ml 340 ml 120 ml Output Total 100 ml 75 ml 500 ml Balance 825 ml 265 ml -380 ml Intake Oral 250 ml 240 ml 120 ml IV Total 75 ml 100 ml Other 600 ml Output Urine Total 75 ml 500 ml Estimated Blood Loss 100 ml # Voids 0 # Bowel Movements 1 0 0 0 Result Diagram: 07/29/16 0646 07/28/16 0115 Imaging Last Impressions Chest X-Ray 07/28/16 0102 Signed Impressions: Service Date/Time: Thursday, July 28, 2016 01:18 - CONCLUSION: 1. Cardiomegaly. No acute pulmonary disease. Alirio Ibarra MD Hip and Pelvis X-Ray 07/28/16 0000 Signed Impressions: Service Date/Time: Thursday, July 28, 2016 00:30 - CONCLUSION: 1. Intertrochanteric fracture left hip Alirio Ibarra MD Femur X-Ray 07/28/16 0000 Signed Impressions: Service Date/Time: Thursday, July 28, 2016 12:23 - CONCLUSION: Internal fixation of a left intertrochanteric fracture with good alignment.. Yolanda Dwyer MD Objective Remarks GENERAL: Well-nourished, well-developed pleasant elderly male patient in [facility]. SKIN: Warm and dry. No rash. HEAD: Normocephalic. Atraumatic. ENT: No nasal bleeding or discharge. Mucous membranes pink and moist. Posterior tongue and oropharynx with white plaque. NECK: Supple. Trachea midline. CARDIOVASCULAR: Regular rate and rhythm. S1, S2 noted. No murmur appreciated. RESPIRATORY: No accessory muscle use. Clear to auscultation. Breath sounds equal bilaterally. GASTROINTESTINAL: Abdomen soft, non-tender, moderately distended. Normoactive bowel sounds x4. MUSCULOSKELETAL: No obvious deformities. Extremities without clubbing, cyanosis , or edema. Left hip with surgical dressing in place, CDI. NEUROLOGICAL: Awake and alert. No obvious cranial nerve deficits. Motor grossly within normal limits. Normal speech. PSYCHIATRIC: Appropriate mood and affect; insight and judgment normal. Procedures 07/28/16 left hip reduction and intramedullary nail fixation by Dr. Rogers Medications and IVs Current Medications Medications (Trade) Dose Ordered Sig/Zully Route Start Time Stop Time Status Last Admin (NS Flush) 2 ml UNSCH PRN FLUSH 07/28/16 03:00 (NS Flush) 2 ml BID FLUSH 07/28/16 09:00 07/29/16 08:47 (Narcan Inj) 0.4 mg UNSCH PRN IV 07/28/16 03:00 (Morphine Inj) 2 mg Q4HR PRN IV PUSH 07/28/16 05:00 07/28/16 03:20 (Lovenox Inj) 30 mg Q24H SQ 07/29/16 12:00 07/29/16 12:32 (Zofran Inj) 4 mg Q4H PRN IVP 07/28/16 12:30 07/29/16 15:01 (Oscal-D 250-125) 250 mg TID PO 07/28/16 13:00 07/29/16 12:32 (Benadryl) 25 mg Q6H PRN PO 07/28/16 12:30 ([place] 7.5-325 Mg) 1 tab Q3H PRN PO 07/28/16 12:30 07/29/16 15:00 (Morphine Inj) 3 mg Q3H PRN IV PUSH 07/28/16 12:30 (Vitamin D3) 5,000 units DAILY PO 07/29/16 09:00 07/29/16 08:41 (Lopressor) 25 mg DAILY PO 07/29/16 09:00 07/29/16 08:41 (Protonix) 20 mg DAILY PO 07/29/16 09:00 07/29/16 08:41 Urinary Catheter: No Vascular Central Line Catheter: No A/P Assessment and Plan 86-year-old male with history of liver cancer on hospice, bradycardia s/p pacemaker, HTN, TIAs, CAD, [place], GERD, presents after a fall last night 07/27/16. Left Hip Fracture: s/p fall 07/27/16. Hip xray upon arrival showed left intertrochanteric fracture. -Consulted ortho -s/p left hip reduction and intramedullary nail fixation 07/28/16 -Pain control with [place] prn and IV morphine prn -Lovenox for DVT prophylaxis per ortho, plan to d/c on Xarelto -PT consulted, WBAT -needs placement, consider [facility], case management consulted Liver Cancer: presented on hospice, however the patient is now removing himself off hospice for hip surgery -patient's end stage liver cancer remains unchanged and patient would likely benefit from going back on hospice after recovering from hip surgery Dysphagia with Oropharyngeal Candidiasis: white plaques on posterior oropharynx/ tongue on exam, with reported dysphagia -start on Fluconazole 150mg daily x14 days -start Magic Mouthwash 5ml tidac -swallow eval with ST -soft diet for now, add Ensure to meals GERD: chronic, continue PPI Bradycardia s/p Pacer, HTN, CAD: all chronic, continue patient's metoprolol with hold parameters. DVT Prophylaxis: Lovenox Written by Tammi Chandler, acting as scribe for Dr. Larsen on 07/29/16 at 13:05. The documentation accurately reflects the work performed [id number] by me, Dr. Larsen on 07/29/16 at 13:05. Tammi Chandler PA-C Jul 29, 2016 17:16 Ethan Larsen MD Jul 30, 2016 02:16
[2016-07-29] MEDS: FLUCONAZOLE 100 MG TAB PO SCH (18:29)
[2016-07-30] VITALS (8 sets, daily range): BP systolic 112–173; BP diastolic 66–92; PULSE 65–78; RESP 16–18; TEMP 96–98; O2SAT 93–96
[2016-07-30] MEDS: ACETAMINOPHEN/HYDROcodone 325 MG/7.5 MG TAB PO PRN ×3 (04:29→13:00)
[2016-07-30] MEDS: MORPHINE SULFATE 4 MG/ML INJ IV PUSH PRN ×2 (06:34→13:00)
[2016-07-30] MEDS: NYSTAT/DIPHENHY/LIDO MOUTHWASH (Adult) 120ML SWISH-SWAL SCH ×3 (08:00→16:33)
[2016-07-30] MEDS: CHOLECALCIFEROL (VIT D3) 5000 UNIT CAP PO SCH (08:16)
[2016-07-30] MEDS: METOPROLOL TARTRATE 25 MG TAB PO SCH (08:17)
[2016-07-30] MEDS: PANTOPRAZOLE SOD 20 MG DELAYED RELEASE TAB PO SCH (08:17)
[2016-07-30] MEDS: FLUCONAZOLE 100 MG TAB PO SCH (08:17)
[2016-07-30] MEDS: SODIUM CHLORIDE 0.9% FLUSH 5 ML FLUSH FLUSH SCH (08:18)
[2016-07-30] MEDS: CALCIUM/VITAMIN D 250 MG/125 U TAB PO SCH ×3 (08:18→16:29)
[2016-07-30] MEDS ORDERED: DOCUSATE SODIUM 50 MG/SENNA 8.6 MG TAB PO ONE (10:00)
--- NOTE | 2016-07-30 10:47 | PD.ORT.PN ---
Subjective Subjective Remarks Patient comfortable. Pain controlled. OOB sitting in recliner. Objective Vitals Vital Signs Date Time Temp Pulse Resp B/P Pulse Ox O2 Delivery O2 Flow Rate FiO2 07/30/16 09:26 93 21 07/30/16 07:57 98.0 78 18 115/66 94 07/30/16 03:55 97.8 65 16 173/92 94 07/30/16 00:20 97.9 74 17 136/80 95 07/29/16 20:55 21 07/29/16 20:45 98.0 76 18 121/69 95 07/29/16 16:00 97.0 61 18 157/75 93 07/29/16 12:00 97.0 83 18 148/90 97 07/29/16 12:00 75 07/29/16 11:00 98 Nasal Cannula 2.00 I/O 07/29/16 07/29/16 07/29/16 07/30/16 07/30/16 07/30/16 07:00 15:00 23:00 07:00 15:00 23:00 Intake Total 120 ml 720 ml 240 ml Output Total 500 ml 700 ml 300 ml Balance -380 ml 20 ml -60 ml Intake Oral 120 ml 720 ml 240 ml Output Urine Total 500 ml 700 ml 300 ml # Voids 1 # Bowel Movements 0 0 0 Result Diagram: 07/29/16 0646 07/28/16 0115 Imaging Last 24 hours Impressions Chest X-Ray 07/28/16 0102 Signed Impressions: Service Date/Time: Thursday, July 28, 2016 01:18 - CONCLUSION: 1. Cardiomegaly. No acute pulmonary disease. Alirio Ibarra MD Hip and Pelvis X-Ray 07/28/16 0000 Signed Impressions: Service Date/Time: Thursday, July 28, 2016 00:30 - CONCLUSION: 1. Intertrochanteric fracture left hip Alirio Ibarra MD Objective Remarks Left Hip dressing C/D/I calves soft negative Sophia's NVI Assessment & Plan Assessment and Plan POD #2 Left hip reduction and intramedullary nail fixation Pain management - [place] DVT prophylaxis - Lovenox Physical therapy - WBAT D/C planning - anticipating SNF Polo Morales Jul 30, 2016 10:47
[2016-07-30] MEDS: ENOXAPARIN SODIUM 30 MG/0.3 ML SYRINGE SQ SCH (13:01)
[2016-07-30] MEDS ORDERED: ACETAMINOPHEN/HYDROcodone 325 MG/7.5 MG TAB PO PRN (15:15)
--- NOTE | 2016-07-30 15:18 | HHI.PR ---
Subjective Remarks Follow up for left hip fracture s/p fixation 07/28, dysphagia. The patient reports still dysphagia, no odynophagia, slightly improved compared to yesterday with diet adjusted. Denies any N/V. Last BM over 2 days ago. Has some abdominal pain and distention secondary to his liver cancer. Denies any leg pain today. Objective Vitals Vital Signs Date Time Temp Pulse Resp B/P Pulse Ox O2 Delivery O2 Flow Rate FiO2 07/30/16 12:00 96.8 70 18 127/79 96 07/30/16 09:26 93 21 07/30/16 07:57 98.0 78 18 115/66 94 07/30/16 03:55 97.8 65 16 173/92 94 07/30/16 00:20 97.9 74 17 136/80 95 07/29/16 20:55 21 07/29/16 20:45 98.0 76 18 121/69 95 07/29/16 16:00 97.0 61 18 157/75 93 I/O 07/29/16 07/29/16 07/29/16 07/30/16 07/30/16 07/30/16 07:00 15:00 23:00 07:00 15:00 23:00 Intake Total 120 ml 720 ml 240 ml Output Total 500 ml 700 ml 300 ml Balance -380 ml 20 ml -60 ml Intake Oral 120 ml 720 ml 240 ml Output Urine Total 500 ml 700 ml 300 ml # Voids 1 # Bowel Movements 0 0 0 Result Diagram: 07/29/16 0646 07/28/16 0115 Imaging Last Impressions Chest X-Ray 07/28/16 0102 Signed Impressions: Service Date/Time: Thursday, July 28, 2016 01:18 - CONCLUSION: 1. Cardiomegaly. No acute pulmonary disease. Alirio Ibarra MD Hip and Pelvis X-Ray 07/28/16 0000 Signed Impressions: Service Date/Time: Thursday, July 28, 2016 00:30 - CONCLUSION: 1. Intertrochanteric fracture left hip Alirio Ibarra MD Femur X-Ray 07/28/16 0000 Signed Impressions: Service Date/Time: Thursday, July 28, 2016 12:23 - CONCLUSION: Internal fixation of a left intertrochanteric fracture with good alignment.. Yolanda Dwyer MD Objective Remarks GENERAL: Well-nourished, well-developed pleasant elderly male patient in NAD. SKIN: Warm and dry. No rash. HEAD: Normocephalic. Atraumatic. ENT: No nasal bleeding or discharge. Mucous membranes pink and moist. Posterior tongue and oropharynx with white plaque. NECK: Supple. Trachea midline. CARDIOVASCULAR: Regular rate and rhythm. S1, S2 noted. No murmur appreciated. RESPIRATORY: No accessory muscle use. Clear to auscultation. Breath sounds equal bilaterally. GASTROINTESTINAL: Abdomen soft, non-tender, moderately distended. Normoactive bowel sounds x4. MUSCULOSKELETAL: No obvious deformities. Extremities without clubbing, cyanosis , or edema. Left hip with surgical dressing in place, CDI. NEUROLOGICAL: Awake and alert. No obvious cranial nerve deficits. Motor grossly within normal limits. Normal speech. PSYCHIATRIC: Appropriate mood and affect; insight and judgment normal. Procedures 07/28/16 left hip reduction and intramedullary nail fixation by Dr. Rogers Medications and IVs Current Medications Medications (Trade) Dose Ordered Sig/Zully Route Start Time Stop Time Status Last Admin (NS Flush) 2 ml UNSCH PRN FLUSH 07/28/16 03:00 (NS Flush) 2 ml BID FLUSH 07/28/16 09:00 07/30/16 08:18 (Narcan Inj) 0.4 mg UNSCH PRN IV 07/28/16 03:00 (Morphine Inj) 2 mg Q4HR PRN IV PUSH 07/28/16 05:00 07/28/16 03:20 (Lovenox Inj) 30 mg Q24H SQ 07/29/16 12:00 07/30/16 13:01 (Zofran Inj) 4 mg Q4H PRN IVP 07/28/16 12:30 07/29/16 15:01 (Oscal-D 250-125) 250 mg TID PO 07/28/16 13:00 07/30/16 13:01 (Benadryl) 25 mg Q6H PRN PO 07/28/16 12:30 ([place] 7.5-325 Mg) 1 tab Q3H PRN PO 07/28/16 12:30 07/30/16 13:00 (Morphine Inj) 3 mg Q3H PRN IV PUSH 07/28/16 12:30 07/30/16 13:00 (Vitamin D3) 5,000 units DAILY PO 07/29/16 09:00 07/30/16 08:16 (Lopressor) 25 mg DAILY PO 07/29/16 09:00 07/30/16 08:17 (Protonix) 20 mg DAILY PO 07/29/16 09:00 07/30/16 08:17 (Diflucan) 150 mg DAILY PO 07/29/16 18:00 08/12/16 17:59 07/30/16 08:17 (Magic Mouthwash Adult Liq) 5 ml TIDAC SWISH-SWAL 07/30/16 08:00 08/06/16 07:59 07/30/16 12:00 (Pill Splitter) 1 ea UNSCH PRN OTHER 07/29/16 17:15 Urinary Catheter: No Vascular Central Line Catheter: No A/P Assessment and Plan 86-year-old male with history of liver cancer on hospice, bradycardia s/p pacemaker, HTN, TIAs, CAD, [place], GERD, presents after a fall last night 07/27/16. Left Hip Fracture: s/p fall 07/27/16. Hip xray upon arrival showed left intertrochanteric fracture. -Consulted ortho -s/p left hip reduction and intramedullary nail fixation 07/28/16 -Pain control with [place] prn and IV morphine prn -Lovenox for DVT prophylaxis per ortho, plan to d/c on Xarelto -PT consulted, WBAT -needs placement, consider [facility], case management consulted Liver Cancer: presented on hospice, however the patient has now removed himself off hospice for hip surgery and rehab -patient's end stage liver cancer remains unchanged and patient would likely benefit from going back on hospice after recovering from hip surgery Dysphagia with Oropharyngeal Candidiasis: white plaques on posterior oropharynx/ tongue on exam, with reported dysphagia (also possibly related to intubation) -start on Fluconazole 150mg daily x14 days and Magic Mouthwash 5ml tidac -swallow eval with ST, recommended mechanical soft with chopped meat/gravy, nectar thickened liquids -add Ensure to meals GERD: chronic, continue PPI Bradycardia s/p Pacer, HTN, CAD: all chronic, continue patient's metoprolol with hold parameters. DVT Prophylaxis: Lovenox Written by Tammi Chandler, acting as scribe for Dr. Larsen on 07/30/16 at 11:38. Discharge Planning Possible discharge to [facility] tomorrow if accepted. Attending Statement The documentation accurately reflects the work performed [id number] by me, Dr. Larsen on 07/30/16 at 11:38. Tammi Chandler PA-C Jul 30, 2016 15:18 Ethan Larsen MD Aug 07, 2016 22:24
[2016-07-30] MEDS: ACETAMINOPHEN/HYDROcodone 325 MG/10 MG TAB PO PRN (16:29)
[2016-07-30] MEDS: MORPHINE SULFATE 4 MG/ML INJ IV PRN (16:29)
[2016-07-31 00:20] VITALS: BP 117/76; PULSE 91; RESP 17; TEMP 96.3; O2SAT 96
[2016-07-31] MEDS: MORPHINE SULFATE 4 MG/ML INJ IV PRN ×3 (02:23→11:48)
--- NOTE | 2016-07-31 06:37 | PD.ORT.PN ---
Subjective Subjective Remarks Sitting comfortably in chair Objective Vitals Vital Signs Date Time Temp Pulse Resp B/P Pulse Ox O2 Delivery O2 Flow Rate FiO2 07/31/16 00:20 96.3 91 17 117/76 96 07/30/16 21:25 96.0 71 16 112/76 94 07/30/16 20:08 21 07/30/16 18:14 74 07/30/16 16:00 96.8 68 18 138/67 96 07/30/16 12:00 96.8 70 18 127/79 96 07/30/16 09:26 93 21 07/30/16 07:57 98.0 78 18 115/66 94 I/O 07/30/16 07/30/16 07/30/16 07/31/16 07/31/16 07/31/16 07:00 15:00 23:00 07:00 15:00 23:00 Intake Total 240 ml 600 ml Output Total 300 ml 400 ml Balance -60 ml 200 ml Intake Oral 240 ml 600 ml Output Urine Total 300 ml 400 ml # Bowel Movements 0 0 Result Diagram: 07/29/16 0646 07/28/16 0115 Imaging Last 24 hours Impressions Chest X-Ray 07/28/16 0102 Signed Impressions: Service Date/Time: Thursday, July 28, 2016 01:18 - CONCLUSION: 1. Cardiomegaly. No acute pulmonary disease. Alirio Ibarra MD Hip and Pelvis X-Ray 07/28/16 0000 Signed Impressions: Service Date/Time: Thursday, July 28, 2016 00:30 - CONCLUSION: 1. Intertrochanteric fracture left hip Alirio Ibarra MD Objective Remarks Left Hip dressing C/D/I calves soft negative Sophia's NVI Assessment & Plan Assessment and Plan POD #3 Left hip reduction and intramedullary nail fixation DVT prophylaxis - Lovenox Physical therapy - WBAT left lower extremity Daily dressing changes with Xeroform and [place] Orthopedic cleared for discharge to rehabilitation D/C planning - anticipating SNF Follow-up with Dr. Rogers or [place] in 2 weeks VERA SCHROEDER PA-C Jul 31, 2016 06:36
[2016-07-31 08:00] VITALS: BP 119/74; PULSE 60; RESP 18; TEMP 96.7; O2SAT 96
[2016-07-31] MEDS: CHOLECALCIFEROL (VIT D3) 5000 UNIT CAP PO SCH (08:26)
[2016-07-31] MEDS: ACETAMINOPHEN/HYDROcodone 325 MG/10 MG TAB PO PRN ×4 (08:26→18:35)
[2016-07-31] MEDS: CALCIUM/VITAMIN D 250 MG/125 U TAB PO SCH ×3 (08:26→18:35)
[2016-07-31] MEDS: FLUCONAZOLE 100 MG TAB PO SCH (08:26)
[2016-07-31] MEDS: PANTOPRAZOLE SOD 20 MG DELAYED RELEASE TAB PO SCH (08:26)
[2016-07-31] MEDS: METOPROLOL TARTRATE 25 MG TAB PO SCH (08:27)
[2016-07-31] MEDS: SODIUM CHLORIDE 0.9% FLUSH 5 ML FLUSH FLUSH SCH ×2 (08:27→20:48)
[2016-07-31] MEDS: NYSTAT/DIPHENHY/LIDO MOUTHWASH (Adult) 120ML SWISH-SWAL SCH ×3 (08:27→18:35)
[2016-07-31] MEDS: ENOXAPARIN SODIUM 30 MG/0.3 ML SYRINGE SQ SCH (11:47)
[2016-07-31 12:00] VITALS: BP 114/67; PULSE 66; RESP 18; TEMP 97.1; O2SAT 96
--- NOTE | 2016-07-31 12:21 | HHI.PR ---
Subjective Remarks Follow up for left hip fracture s/p fixation 07/28, dysphagia. Pain is controlled. Denies N/V. Tolerating diet. Denies CP or SOB. No BM yet. Objective Vitals Vital Signs Date Time Temp Pulse Resp B/P Pulse Ox O2 Delivery O2 Flow Rate FiO2 07/31/16 08:00 96.7 60 18 119/74 96 07/31/16 00:20 96.3 91 17 117/76 96 07/30/16 21:25 96.0 71 16 112/76 94 07/30/16 20:08 21 07/30/16 18:14 74 07/30/16 16:00 96.8 68 18 138/67 96 I/O 07/30/16 07/30/16 07/30/16 07/31/16 07/31/16 07/31/16 07:00 15:00 23:00 07:00 15:00 23:00 Intake Total 240 ml 600 ml 480 ml 120 ml Output Total 300 ml 400 ml 300 ml 300 ml Balance -60 ml 200 ml 180 ml -180 ml Intake Oral 240 ml 600 ml 480 ml 120 ml Output Urine Total 300 ml 400 ml 300 ml 300 ml # Bowel Movements 0 0 0 0 Result Diagram: 07/29/16 0646 07/28/16 0115 Imaging Last Impressions Chest X-Ray 07/28/16 0102 Signed Impressions: Service Date/Time: Thursday, July 28, 2016 01:18 - CONCLUSION: 1. Cardiomegaly. No acute pulmonary disease. Alirio Ibarra MD Hip and Pelvis X-Ray 07/28/16 0000 Signed Impressions: Service Date/Time: Thursday, July 28, 2016 00:30 - CONCLUSION: 1. Intertrochanteric fracture left hip Alirio Ibarra MD Femur X-Ray 07/28/16 0000 Signed Impressions: Service Date/Time: Thursday, July 28, 2016 12:23 - CONCLUSION: Internal fixation of a left intertrochanteric fracture with good alignment.. Yolanda Dwyer MD Objective Remarks GENERAL: Well-developed well-nourished. In no acute distress. SKIN: Warm and dry. No lesions noted. HEENT: Normocephalic. Pupils equal and round. Mucous membranes pink and moist. CARDIOVASCULAR: Regular rate and rhythm. No murmur appreciated. RESPIRATORY: No accessory muscle use. Clear to auscultation. Breath sounds equal bilaterally. GASTROINTESTINAL: Abdomen soft, non-tender, nondistended. Bowel sounds x4. MUSCULOSKELETAL: Left hip with dressing in place, CDI. No clubbing or cyanosis. No edema. NEUROLOGICAL: Awake and alert. No focal neurological deficits. Moves upper and lower extremities spontaneously. Normal speech. PSYCHIATRIC: Appropriate mood and affect; insight and judgment normal. Procedures 07/28/16 left hip reduction and intramedullary nail fixation by Dr. Rogers A/P Assessment and Plan 86-year-old male with history of liver cancer on hospice, bradycardia s/p pacemaker, HTN, TIAs, CAD, [place], GERD, presents after a fall last night 07/27/16. Left Hip Fracture: s/p fall 07/27/16. Hip xray upon arrival showed left intertrochanteric fracture. -Consulted ortho -s/p left hip reduction and intramedullary nail fixation 07/28/16 -Pain control with [place] prn. Resume home morphine ER scheduled. -Lovenox for DVT prophylaxis per ortho, plan to d/c on Xarelto -PT consulted, WBAT -needs placement, consider [facility], case management consulted Liver Cancer: presented on hospice, however the patient has now removed himself off hospice for hip surgery and rehab -patient's end stage liver cancer remains unchanged and patient would likely benefit from going back on hospice after recovering from hip surgery Dysphagia with Oropharyngeal Candidiasis: white plaques on posterior oropharynx/ tongue on exam, with reported dysphagia (also possibly related to intubation) -started on Fluconazole 150mg daily x14 days and Magic Mouthwash 5ml tidac -swallow eval with ST, recommended mechanical soft with chopped meat/gravy, nectar thickened liquids -added Ensure to meals GERD: chronic, continue PPI Bradycardia s/p Pacer, HTN, CAD: all chronic, continue patient's metoprolol with hold parameters. DVT Prophylaxis: Lovenox Written by Ben Joshua, acting as scribe for Dr. Larsen on 07/31/16 at 12:20. Discharge Planning Discharge planning to [place] when accepted; reportedly patient needs to be controlled on oral meds. Attending Statement The documentation accurately reflects the work performed [id number] by me, Dr. Larsen on 1/16/17 at 12:20. Ben Joshua Jul 31, 2016 12:21 Ethan Larsen MD Aug 08, 2016 00:50
[2016-07-31] MEDS ORDERED: DOCUSATE SODIUM 50 MG/SENNA 8.6 MG TAB PO ONE (13:00)
[2016-07-31] MEDS ORDERED: MAGNESIUM HYDROXIDE SUSP 30 ML CUP PO ONE (13:00)
[2016-07-31] MEDS ORDERED: SOD PHOSPHATE/SOD BIPHOSPHATE (ADULT) ENEMA 133ML PR ONE (13:00)
[2016-07-31] MEDS: MORPHINE SULFATE 15 MG CONTROLLED RELEASE TAB PO SCH ×2 (15:46→20:48)
[2016-07-31 16:00] VITALS: BP 120/65; PULSE 63; RESP 18; TEMP 95.4; O2SAT 97
[2016-07-31 20:40] VITALS: BP 112/62; PULSE 88; RESP 16; TEMP 97.9; O2SAT 95
[2016-07-31] MEDS: DOCUSATE SODIUM 50 MG/SENNA 8.6 MG TAB PO SCH (20:48)
[2016-08-01] VITALS (7 sets, daily range): BP systolic 89–133; BP diastolic 57–83; PULSE 60–81; RESP 16–18; TEMP 96.1–97.6; O2SAT 94–100
[2016-08-01] MEDS: MORPHINE SULFATE 15 MG CONTROLLED RELEASE TAB PO SCH ×3 (05:21→21:40)
[2016-08-01] MEDS ORDERED: BISACODYL 10 MG SUPP RECTAL PRN (08:15)
[2016-08-01] MEDS: METOPROLOL TARTRATE 25 MG TAB PO SCH (09:51)
[2016-08-01] MEDS: CALCIUM/VITAMIN D 250 MG/125 U TAB PO SCH ×3 (09:51→18:23)
[2016-08-01] MEDS: FLUCONAZOLE 100 MG TAB PO SCH (09:51)
[2016-08-01] MEDS: CHOLECALCIFEROL (VIT D3) 5000 UNIT CAP PO SCH (09:51)
[2016-08-01] MEDS: NYSTAT/DIPHENHY/LIDO MOUTHWASH (Adult) 120ML SWISH-SWAL SCH ×3 (09:51→18:23)
[2016-08-01] MEDS: DOCUSATE SODIUM 50 MG/SENNA 8.6 MG TAB PO SCH ×2 (09:51→21:40)
[2016-08-01] MEDS: MAGNESIUM HYDROXIDE SUSP 30 ML CUP PO PRN ×2 (09:51→21:40)
[2016-08-01] MEDS: ACETAMINOPHEN/HYDROcodone 325 MG/10 MG TAB PO PRN ×3 (09:52→18:23)
[2016-08-01] MEDS: PANTOPRAZOLE SOD 20 MG DELAYED RELEASE TAB PO SCH (09:52)
[2016-08-01] MEDS: SODIUM CHLORIDE 0.9% FLUSH 5 ML FLUSH FLUSH SCH ×2 (09:55→21:00)
--- NOTE | 2016-08-01 13:53 | HHI.DCPOC ---
Discharge Care Plan Diagnosis: (1) Anemia Goals to Promote Your Health * To prevent worsening of your condition and complications * To maintain your health at the optimal level Directions to Meet Your Goals Take your medications as prescribed Follow your dietary instruction Follow activity as directed Keep your appointments as scheduled Take your immunizations and boosters as scheduled If your symptoms worsen call your PCP, if no PCP go to Urgent Care Center or Emergency Room Smoking is Dangerous to Your Health. Avoid second hand smoke Call the 24-hour hour crisis hotline for domestic abuse at Ethan Larsen MD Aug 01, 2016 13:53
[2016-08-01] MEDS: ENOXAPARIN SODIUM 30 MG/0.3 ML SYRINGE SQ SCH (13:55)
[2016-08-01] MEDS ORDERED: SENN1TAB PO (13:57)
[2016-08-01] MEDS ORDERED: DIFL100T PO (13:57)
--- NOTE | 2016-08-01 14:14 | HHI.PR ---
Subjective Remarks Patient seen this afternoon. Says he feels well. Still no bowel movement. Cathartics ordered. Denies any abdominal pain. Denies any nausea or vomiting. He would like to try ensure. Objective Vital Signs Date Time Temp Pulse Resp B/P Pulse Ox O2 Delivery O2 Flow Rate FiO2 08/01/16 12:00 97.1 60 16 89/63 99 08/01/16 09:12 95 21 08/01/16 08:00 96.5 70 16 120/75 99 08/01/16 04:57 97.6 66 17 116/68 95 08/01/16 00:39 96.8 68 16 133/83 96 07/31/16 20:48 Nasal Cannula 2.00 21 07/31/16 20:40 97.9 88 16 112/62 95 07/31/16 20:40 97.9 88 16 112/62 95 07/31/16 16:00 95.4 63 18 120/65 97 I/O 07/31/16 07/31/16 07/31/16 08/01/16 08/01/16 08/01/16 07:00 15:00 23:00 07:00 15:00 23:00 Intake Total 600 ml 480 ml 240 ml Output Total 700 ml 200 ml 375 ml Balance -100 ml 280 ml -135 ml Intake Oral 600 ml 480 ml 240 ml Output Urine Total 700 ml 200 ml 375 ml # Bowel Movements 0 0 0 Result Diagram: 07/29/16 0646 07/28/16 0115 Objective Remarks GENERAL: Awake, alert. Oriented 3. Appears comfortable. SKIN: Warm and dry. HEAD: Normocephalic. EYES: No scleral icterus. No injection or drainage. NECK: Supple, trachea midline. No JVD. CARDIOVASCULAR: Regular rate and rhythm without murmurs, gallops, or rubs. RESPIRATORY: Breath sounds equal bilaterally. No accessory muscle use. GASTROINTESTINAL: Abdomen soft, non-tender, nondistended. MUSCULOSKELETAL: No cyanosis, or edema. BACK: Nontender without obvious deformity. No CVA tenderness. A/P Assessment and Plan 86-year-old male with history of liver cancer on hospice, bradycardia s/p pacemaker, HTN, TIAs, CAD, [place], GERD, presents after a fall last night 07/27/16. Left Hip Fracture: s/p fall 07/27/16. Hip xray upon arrival showed left intertrochanteric fracture. -Consulted ortho -s/p left hip reduction and intramedullary nail fixation 07/28/16 -Pain control with [place] prn and IV morphine prn -Lovenox for DVT prophylaxis per ortho, plan to d/c on Xarelto -PT consulted, WBAT -Charged [place] after bowel movement. Liver Cancer: presented on hospice, however the patient is now removing himself off hospice for hip surgery -patient's end stage liver cancer remains unchanged and patient would likely benefit from going back on hospice after recovering from hip surgery Dysphagia with Oropharyngeal Candidiasis: white plaques on posterior oropharynx/ tongue on exam, with reported dysphagia -start on Fluconazole 150mg daily x14 days -start Magic Mouthwash 5ml tidac -swallow eval with ST -soft diet for now, add Ensure to meals GERD: chronic, continue PPI Bradycardia s/p Pacer, HTN, CAD: all chronic, continue patient's metoprolol with hold parameters. Last patient. Cathartics ordered. DVT Prophylaxis: Lovenox Written by Tammi Chandler, acting as scribe for Dr. Larsen on 07/29/16 at 13:05. The documentation accurately reflects the work performed [id number] by me, Dr. Larsen on 07/29/16 at 13:05. Discharge Planning Discharged to [place] after bowel movement. Ethan Larsen MD Aug 01, 2016 14:14
[2016-08-01] MEDS ORDERED: BISACODYL 10 MG SUPP RECTAL ONE (14:15)
[2016-08-02 00:39] VITALS: BP 101/67; PULSE 77; RESP 17; TEMP 96.8; O2SAT 96
[2016-08-02 04:02] VITALS: BP 118/71; PULSE 64; RESP 15; TEMP 96.4; O2SAT 95
[2016-08-02] MEDS: MORPHINE SULFATE 15 MG CONTROLLED RELEASE TAB PO SCH ×3 (05:42→20:04)
--- NOTE | 2016-08-02 07:05 | PD.ORT.PN ---
Subjective Subjective Remarks Sitting comfortably in chair Objective Vitals Vital Signs Date Time Temp Pulse Resp B/P Pulse Ox O2 Delivery O2 Flow Rate FiO2 08/02/16 04:02 96.4 64 15 118/71 95 08/02/16 00:39 96.8 77 17 101/67 96 08/01/16 21:40 Nasal Cannula 2.00 08/01/16 20:42 96.6 81 16 92/57 100 08/01/16 16:00 96.1 60 18 106/78 94 08/01/16 12:00 97.1 60 16 89/63 99 08/01/16 09:12 95 21 08/01/16 08:00 96.5 70 16 120/75 99 I/O 08/01/16 08/01/16 08/01/16 08/02/16 08/02/16 08/02/16 07:00 15:00 23:00 07:00 15:00 23:00 Intake Total 240 ml 100 ml 120 ml 120 ml Output Total 375 ml Balance -135 ml 100 ml 120 ml 120 ml Intake Oral 240 ml 100 ml 120 ml 120 ml Output Urine Total 375 ml # Voids 2 0 1 # Bowel Movements 0 0 0 Result Diagram: 07/29/16 0646 Imaging Last 24 hours Impressions Chest X-Ray 07/28/16 0102 Signed Impressions: Service Date/Time: Thursday, July 28, 2016 01:18 - CONCLUSION: 1. Cardiomegaly. No acute pulmonary disease. Alirio Ibarra MD Hip and Pelvis X-Ray 07/28/16 0000 Signed Impressions: Service Date/Time: Thursday, July 28, 2016 00:30 - CONCLUSION: 1. Intertrochanteric fracture left hip Alirio Ibarra MD Objective Remarks Left Hip dressing C/D/I calves soft negative Sophia's NVI Assessment & Plan Assessment and Plan POD #5 Left hip reduction and intramedullary nail fixation DVT prophylaxis - Lovenox Physical therapy - WBAT left lower extremity Daily dressing changes with Xeroform and [place] Orthopedic cleared for discharge to rehabilitation D/C planning - anticipating SNF Follow-up with Dr. Rogers or [place] in 2 weeks VERA SCHROEDER PA-C Aug 02, 2016 07:05
[2016-08-02 08:00] VITALS: BP 115/69; PULSE 64; RESP 16; TEMP 95.6; O2SAT 96
[2016-08-02] MEDS: METOPROLOL TARTRATE 25 MG TAB PO SCH (08:04)
[2016-08-02] MEDS: NYSTAT/DIPHENHY/LIDO MOUTHWASH (Adult) 120ML SWISH-SWAL SCH ×3 (08:04→17:00)
[2016-08-02] MEDS: DOCUSATE SODIUM 50 MG/SENNA 8.6 MG TAB PO SCH ×2 (08:04→20:04)
[2016-08-02] MEDS: PANTOPRAZOLE SOD 20 MG DELAYED RELEASE TAB PO SCH (08:04)
[2016-08-02] MEDS: CALCIUM/VITAMIN D 250 MG/125 U TAB PO SCH ×3 (08:06→17:45)
[2016-08-02] MEDS: FLUCONAZOLE 100 MG TAB PO SCH (08:06)
[2016-08-02] MEDS: CHOLECALCIFEROL (VIT D3) 5000 UNIT CAP PO SCH (08:06)
[2016-08-02] MEDS: ACETAMINOPHEN/HYDROcodone 325 MG/10 MG TAB PO PRN (08:13)
[2016-08-02] MEDS ORDERED: MAGNESIUM CITRATE SOLN 300 ML BTL PO ONE (10:00)
[2016-08-02] MEDS ORDERED: DOCUSATE SODIUM 50 MG/SENNA 8.6 MG TAB PO ONE (10:00)
[2016-08-02] MEDS: ENOXAPARIN SODIUM 30 MG/0.3 ML SYRINGE SQ SCH (10:29)
[2016-08-02 12:00] VITALS: BP 128/86; PULSE 80; RESP 16; TEMP 96.5; O2SAT 96
--- NOTE | 2016-08-02 15:02 | RADRPT ---
EXAM DATE/TIME: 08/02/2016 13:26 [facility] COMPARISON: CT ABDOMEN & PELVIS W CONTRAST, March 24 fluid filled bowel. Recommend further evaluation with CT ., 2016, 19:34. INDICATIONS : Obstruction. MEDICAL HISTORY : Hypertension. Bradycardia. 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 SURGICAL HISTORY : Pacemaker. Coronary artery stent. 5 hernia operations. Inguinal hernia. Hemigastrectomy. Vagotomy. ENCOUNTER: Subsequent ACUITY: 3 days PAIN SCORE: 4/10 LOCATION: Left lower abdomen. FINDINGS: Supine view of the abdomen is significant for air mixed with stool seen within the descending and sig moid colon. There is a paucity of bowel gas seen throughout the remainder of the abdomen concerning f or fluid-filled bowel. CONCLUSION: Abnormal exam with paucity of bowel gas identified within the mid and right abdomen as well as pelvis . Recommend further evaluation with CT.. Yolanda Dwyer MD on August 02, 2016 at 14:58 Board Certified Radiologist. This report was verified electronically.
[2016-08-02 16:00] VITALS: BP 153/88; PULSE 68; RESP 16; TEMP 94.5; O2SAT 96
[2016-08-02] MEDS ORDERED: DIATRIZOATE MEGLUM/DIATRIZOATE SOD 9 ML CUP PO ONE (18:15)
--- NOTE | 2016-08-02 18:39 | HHI.PR ---
Subjective Remarks patient seen today at around 1 PM. Patient sitting up in chair. Says he feels well. Denies any chest pain or shortness of breath. says his swallowing is improving.At the time of my examination, had not had a bowel movement.Since . Objective Vital Signs Date Time Temp Pulse Resp B/P Pulse Ox O2 Delivery O2 Flow Rate FiO2 08/02/16 16:00 94.5 68 16 153/88 96 08/02/16 12:00 96.5 80 16 128/86 96 08/02/16 08:00 95.6 64 16 115/69 96 08/02/16 04:02 96.4 64 15 118/71 95 08/02/16 00:39 96.8 77 17 101/67 96 08/01/16 21:40 Nasal Cannula 2.00 08/01/16 20:42 96.6 81 16 92/57 100 I/O 08/01/16 08/01/16 08/01/16 08/02/16 08/02/16 08/02/16 07:00 15:00 23:00 07:00 15:00 23:00 Intake Total 240 ml 100 ml 120 ml 120 ml 960 ml Output Total 375 ml 350 ml Balance -135 ml 100 ml 120 ml 120 ml 610 ml Intake Oral 240 ml 100 ml 120 ml 120 ml 960 ml Output Urine Total 375 ml 350 ml # Voids 2 0 1 # Bowel Movements 0 0 0 1 Result Diagram: 07/29/16 0646 Imaging Last Impressions Abdomen X-Ray 08/02/16 0000 Signed Impressions: Service Date/Time: Tuesday, August 02, 2016 13:26 - CONCLUSION: Abnormal exam with paucity of bowel gas identified within the mid and right abdomen as well as pelvis. Recommend further evaluation with CT.. Yolanda Dwyer MD Chest X-Ray 07/28/16 0102 Signed Impressions: Service Date/Time: Thursday, July 28, 2016 01:18 - CONCLUSION: 1. Cardiomegaly. No acute pulmonary disease. Alirio Ibarra MD Hip and Pelvis X-Ray 07/28/16 0000 Signed Impressions: Service Date/Time: Thursday, July 28, 2016 00:30 - CONCLUSION: 1. Intertrochanteric fracture left hip Alirio Ibarra MD Femur X-Ray 07/28/16 0000 Signed Impressions: Service Date/Time: Thursday, July 28, 2016 12:23 - CONCLUSION: Internal fixation of a left intertrochanteric fracture with good alignment.. Yolanda Dwyer MD Objective Remarks GENERAL: Awake, alert. Oriented 3. smiling. Appears comfortable. SKIN: Warm and dry. HEAD: Normocephalic. EYES: No scleral icterus. No injection or drainage. NECK: Supple, trachea midline. No JVD.patient has no thrush, as he had previously on admission CARDIOVASCULAR: Regular rate and rhythm without murmurs, gallops, or rubs. RESPIRATORY: Breath sounds equal bilaterally. No accessory muscle use. GASTROINTESTINAL: abdomen with firm liver right upper quadrant as before. Hypoactive bowel sounds. nontender.No rebound or guarding.no change on abdomen MUSCULOSKELETAL: No cyanosis, or edema. BACK: Nontender without obvious deformity. No CVA tenderness. A/P Assessment and Plan 08/02/16. Patient cleared for discharged to [facility], as he has had a bowel movement. Initially Ordered a KUB which showed possibility of air in the right abdomen, which is likely secondary to mass effect from cancerous liver. CT abdomen ordered due to constipation, however patient had a bowel movement before CT was performed, and this was canceled. 86-year-old male with history of liver cancer on hospice, bradycardia s/p pacemaker, HTN, TIAs, CAD, [place], GERD, presents after a fall last night 07/27/16. Left Hip Fracture: s/p fall 07/27/16. Hip xray upon arrival showed left intertrochanteric fracture. -Consulted ortho -s/p left hip reduction and intramedullary nail fixation 07/28/16 -Pain control with [place] prn and IV morphine prn -Lovenox for DVT prophylaxis per ortho, plan to d/c on Xarelto -PT consulted, WBAT -Discharg Ash on 08/03Liver Cancer: presented on hospice, however the patient is now removing himself off hospice for hip surgery -patient's end stage liver cancer remains unchanged and patient would likely benefit from going back on hospice after recovering from hip surgery //Dysphagia with Oropharyngeal Candidiasis: white plaques on posterior oropharynx/tongue on exam, with reported dysphagia -Improving. Continue on Fluconazole 150mg daily x14 days -Continue Magic Mouthwash 5ml tidac -swallow eval with ST -Soft diet with nectar thick liquids. GERD: chronic, continue PPI Bradycardia s/p Pacer, HTN, CAD: all chronic, continue patient's metoprolol with hold parameters. Last patient. Cathartics ordered. DVT Prophylaxis: Lovenox Discharge Planning patient has had a bowel movement. Discharge to [facility] on 08/03 -after [facility], patient may go back on hospice Ethan Larsen MD Aug 02, 2016 18:39
[2016-08-02] MEDS ORDERED: OYST250T4 PO (18:51)
--- NOTE | 2016-08-02 18:54 | HHI.DS ---
Discharge Summary Admission Date Jul 28, 2016 at 02:59 Discharge Date: Aug 02, 2016 Admitting Diagnosis Left Hip Fx (1) Oral pharyngeal candidiasis ICD Code: B37.0 (2) Intertrochanteric fracture of left femur ICD Code: S72.142A Procedures 07/28/16 left hip reduction and intramedullary nail fixation by Dr. Barry Brief History - From Admission 86-year-old male with history of liver cancer on hospice, bradycardia s/p pacemaker, HTN, TIAs, CAD, [place], GERD, presents after a fall last night 07/27/16. The patient reports he was getting up from using the toilet, when he fell forward, landed directly on his left hip. Denies any lightheadedness, dizziness , loss of consciousness, or head injury. He had immediate left hip pain, and was unable to get off the floor. He states he tried to ambulate, was dragging himself across the floor, but could not get up therefore his called 911. Upon arrival to the ED, hip xray showed intertrochanteric fracture of the left hip. Orthopedics surgery was consulted, the patient will proceed with ORIF today. He has received IV morphine for pain control and currently the patient denies any pain. Discussed with hospice at bedside, patient will be removing himself from hospice at this time, with plans to return to hospice after recovering from hip surgery. He has no other medical complaints at this time. Denies any symptoms of recurrent chest pains/angina or shortness of breath. He has chronic abdominal distention secondary to liver cancer. CBC/BMP: 07/29/16 0646 Imaging Last Impressions Abdomen X-Ray 08/02/16 0000 Signed Impressions: Service Date/Time: Tuesday, August 02, 2016 13:26 - CONCLUSION: Abnormal exam with paucity of bowel gas identified within the mid and right abdomen as well as pelvis. Recommend further evaluation with CT.. Yolanda Dwyer MD Chest X-Ray 07/28/16 0102 Signed Impressions: Service Date/Time: Thursday, July 28, 2016 01:18 - CONCLUSION: 1. Cardiomegaly. No acute pulmonary disease. Alirio Ibarra MD Hip and Pelvis X-Ray 07/28/16 0000 Signed Impressions: Service Date/Time: Thursday, July 28, 2016 00:30 - CONCLUSION: 1. Intertrochanteric fracture left hip Alirio Ibarra MD Femur X-Ray 07/28/16 0000 Signed Impressions: Service Date/Time: Thursday, July 28, 2016 12:23 - CONCLUSION: Internal fixation of a left intertrochanteric fracture with good alignment.. Yolanda Dwyer MD PE at Discharge GENERAL: Well-developed well-nourished. In no acute distress. SKIN: Warm and dry. No lesions noted. HEENT: Normocephalic. Pupils equal and round. Mucous membranes pink and moist. CARDIOVASCULAR: Regular rate and rhythm. No murmur appreciated. RESPIRATORY: No accessory muscle use. Clear to auscultation. Breath sounds equal bilaterally. GASTROINTESTINAL: Abdomen soft, non-tender, nondistended. Bowel sounds x4. MUSCULOSKELETAL: Left hip with dressing in place, CDI. No clubbing or cyanosis. No edema. NEUROLOGICAL: Awake and alert. No focal neurological deficits. Moves upper and lower extremities spontaneously. Normal speech. PSYCHIATRIC: Appropriate mood and affect; insight and judgment normal. Hospital Course Patient revoked hospice, and underwent left hip left hip reduction and intramedullary nail fixation 07/28/16. Patient was found to have acute on chronic dysphagia, as well as some oropharyngeal thrush. He was started on fluconazole and Magic mouthwash with improvement. He was seen by speech therapy , who recommends nectar thickened liquids. Patient did develop some constipation, which resolved by discharge. Of note, KUB x-ray on 08/02 shows absence of bowel gas in the right abdomen, which is likely secondary to large liver secondary to known cancer. Patient will be discharged to inpatient rehabilitation, after which he may be discharged home with hospice. For problem-based summary from most recent progress note, please see below. 08/02/16. Patient cleared for discharged to [place], as he has had a bowel movement. Initially Ordered a KUB which showed possibility of air in the right abdomen, which is likely secondary to mass effect from cancerous liver. CT abdomen ordered due to constipation, however patient had a bowel movement before CT was performed, and this was canceled. 86-year-old male with history of liver cancer on hospice, bradycardia s/p pacemaker, HTN, TIAs, CAD, [place], GERD, presents after a fall last night 07/27/16. Left Hip Fracture: s/p fall 07/27/16. Hip xray upon arrival showed left intertrochanteric fracture. -Consulted ortho -s/p left hip reduction and intramedullary nail fixation 07/28/16 -Pain control with Lily prn and IV morphine prn -Lovenox for DVT prophylaxis per ortho, plan to d/c on Xarelto -PT consulted, WBAT -Discharg [place] on 08/03 /Liver Cancer: presented on hospice, however the patient is now removing himself off hospice for hip surgery -patient's end stage liver cancer remains unchanged and patient would likely benefit from going back on hospice after recovering from hip surgery //Dysphagia with Oropharyngeal Candidiasis: white plaques on posterior oropharynx/tongue on exam, with reported dysphagia -Improving. Continue on Fluconazole 150mg daily x14 days -Continue Magic Mouthwash 5ml tidac -swallow eval with ST -Soft diet with nectar thick liquids. GERD: chronic, continue PPI Bradycardia s/p Pacer, HTN, CAD: all chronic, continue patient's metoprolol with hold parameters. Last patient. Cathartics ordered. DVT Prophylaxis: Lovenox Discharge Planning patient has had a bowel movement. Discharge to [place] on 08/03 -after [place], patient may go back on hospice Pt Condition on Discharge: Good Discharge Disposition: Rehab Inpatient Discharge Time: > 30 minutes Discharge Instructions DIET: Follow Instructions for: As Tolerated, No Restrictions Speech Therapy-Diet Recommends: [place] Thickened Liquids, Chopped Meat w/Gravy Additional Diet Instructions: Ensure with meals Activities you can perform: Weight Bearing as Jane Other Activity Instructions: see ortho instructions Follow up Referrals: Orthopedics - 08/11/16 @ [facility] with Joe Barry MD New Medications: Hydrocodone-Acetaminophen (Lily) 7.5-325 mg Tab 1 TAB PO Q4H PRN PAIN #60 Ref 0 TAB Rivaroxaban (Xarelto) 10 Mg Tab 10 MG PO DAILY Blood Clot Prevention #21 Ref 0 TAB Calcium Carbonate-Cholecalciferol (Oyster Shell Calcium/Vitamin D) 250-125 Mg- Unit Tab 250 MG PO TID low vitamin d Days 30 TAB Fluconazole (Diflucan) 100 Mg Tab 150 MG PO DAILY esophagitis Days 11 TAB Sennosides-Docusate Sodium (Senna Plus 8.6-50 mg) 1 Tab Tab 1 TAB PO BID Constipation Days 30 TAB Continued Medications: Metoprolol Tartrate (Metoprolol Tartrate) 25 Mg Tab 25 MG PO DAILY #30 Ref 0 TAB Morphine ER (Morphine ER) 15 Mg Tab 15 MG PO Q8H Pain Management Ref 0 TAB Omeprazole (Omeprazole) 20 Mg Tab 20 MG PO DAILY #30 Ref 0 TAB Ethan Larsen MD Aug 02, 2016 18:54
[2016-08-02 20:00] VITALS: BP 106/67; PULSE 80; RESP 16; TEMP 96.3; O2SAT 94
[2016-08-02] MEDS: SODIUM CHLORIDE 0.9% FLUSH 5 ML FLUSH FLUSH SCH (20:03)
[2016-08-03] VITALS: BP 108/56; PULSE 68; RESP 18; TEMP 95.9; O2SAT 93
[2016-08-03 04:49] VITALS: BP 121/60; PULSE 65; RESP 18; TEMP 95.1; O2SAT 95
[2016-08-03] MEDS: MORPHINE SULFATE 15 MG CONTROLLED RELEASE TAB PO SCH ×2 (05:00→12:49)
[2016-08-03 08:00] VITALS: BP 114/77; PULSE 62; RESP 18; TEMP 96.3; O2SAT 93
[2016-08-03] MEDS: NYSTAT/DIPHENHY/LIDO MOUTHWASH (Adult) 120ML SWISH-SWAL SCH ×3 (08:00→13:07)
[2016-08-03] MEDS: FLUCONAZOLE 100 MG TAB PO SCH (10:26)
[2016-08-03] MEDS: DOCUSATE SODIUM 50 MG/SENNA 8.6 MG TAB PO SCH (10:26)
[2016-08-03] MEDS: METOPROLOL TARTRATE 25 MG TAB PO SCH (10:26)
[2016-08-03] MEDS: CALCIUM/VITAMIN D 250 MG/125 U TAB PO SCH ×2 (10:26→12:49)
[2016-08-03] MEDS: CHOLECALCIFEROL (VIT D3) 5000 UNIT CAP PO SCH (10:27)
[2016-08-03] MEDS: PANTOPRAZOLE SOD 20 MG DELAYED RELEASE TAB PO SCH (10:27)
[2016-08-03] MEDS: ACETAMINOPHEN/HYDROcodone 325 MG/10 MG TAB PO PRN (10:27)
[2016-08-03] MEDS: SODIUM CHLORIDE 0.9% FLUSH 5 ML FLUSH FLUSH SCH (10:27)
[2016-08-03] MEDS: ENOXAPARIN SODIUM 30 MG/0.3 ML SYRINGE SQ SCH (10:28)
[2016-08-03 12:00] VITALS: BP 119/96; PULSE 90; RESP 18; TEMP 96.8; O2SAT 96
--- NOTE | 2016-08-03 12:50 | HHI.PR ---
Subjective Remarks Patient had a BM. Denies pain. Says he was able to eat today and had appetite. No fever or chills. No n/v/d/c. Objective Vitals Vital Signs Date Time Temp Pulse Resp B/P Pulse Ox O2 Delivery O2 Flow Rate FiO2 08/03/16 08:00 96.3 62 18 114/77 93 08/03/16 04:49 95.1 65 18 121/60 95 08/03/16 00:00 95.9 68 18 108/56 93 08/02/16 20:00 96.3 80 16 106/67 94 08/02/16 16:00 94.5 68 16 153/88 96 I/O 08/02/16 08/02/16 08/02/16 08/03/16 08/03/16 08/03/16 07:00 15:00 23:00 07:00 15:00 23:00 Intake Total 120 ml 960 ml 240 ml 240 ml Output Total 350 ml 200 ml Balance 120 ml 610 ml 40 ml 240 ml Intake Oral 120 ml 960 ml 240 ml 240 ml Output Urine Total 350 ml 200 ml # Voids 1 2 # Bowel Movements 0 1 0 1 Imaging Last Impressions Abdomen X-Ray 08/02/16 0000 Signed Impressions: Service Date/Time: Tuesday, August 02, 2016 13:26 - CONCLUSION: Abnormal exam with paucity of bowel gas identified within the mid and right abdomen as well as pelvis. Recommend further evaluation with CT.. Yolanda Dwyer MD Chest X-Ray 07/28/16 0102 Signed Impressions: Service Date/Time: Thursday, July 28, 2016 01:18 - CONCLUSION: 1. Cardiomegaly. No acute pulmonary disease. Alirio Ibarra MD Hip and Pelvis X-Ray 07/28/16 0000 Signed Impressions: Service Date/Time: Thursday, July 28, 2016 00:30 - CONCLUSION: 1. Intertrochanteric fracture left hip Alirio Ibarra MD Femur X-Ray 07/28/16 0000 Signed Impressions: Service Date/Time: Thursday, July 28, 2016 12:23 - CONCLUSION: Internal fixation of a left intertrochanteric fracture with good alignment.. Yolanda Dwyer MD Objective Remarks GENERAL: Awake, alert. Oriented 3. smiling. Appears comfortable. SKIN: Warm and dry. 2 deep tissue injuries on coccyx and left ischium HEAD: Normocephalic. EYES: No scleral icterus. No injection or drainage. NECK: Supple, trachea midline. No JVD.patient has no thrush, as he had previously on admission CARDIOVASCULAR: Regular rate and rhythm without murmurs, gallops, or rubs. RESPIRATORY: Breath sounds equal bilaterally. No accessory muscle use. GASTROINTESTINAL: abdomen with firm liver right upper quadrant as before. Hypoactive bowel sounds. nontender.No rebound or guarding.no change on abdomen MUSCULOSKELETAL: No cyanosis, or edema. BACK: Nontender without obvious deformity. No CVA tenderness. Procedures 07/28/16 left hip reduction and intramedullary nail fixation by Dr. Rogers A/P Problem List: (1) Oral pharyngeal candidiasis ICD Code: B37.0 Status: Acute (2) Intertrochanteric fracture of left femur ICD Code: S72.142A Status: Acute Assessment and Plan 08/03 2 deep tissue injuries on coccyx and left ischium. Calazine barrier cream BID and as need , also place patient in specialty bed. Discussed with wound care. Patient had a BM. Denies pain. Says he was able to eat today and had appetite. No fever or chills. 08/02/16. Patient cleared for discharged to [place], as he has had a bowel movement. Initially Ordered a KUB which showed possibility of air in the right abdomen, which is likely secondary to mass effect from cancerous liver. CT abdomen ordered due to constipation, however patient had a bowel movement before CT was performed, and this was canceled. 86-year-old male with history of liver cancer on hospice, bradycardia s/p pacemaker, HTN, TIAs, CAD, [place], GERD, presents after a fall last night 07/27/16. Left Hip Fracture: s/p fall 07/27/16. Hip xray upon arrival showed left intertrochanteric fracture. -Consulted ortho -s/p left hip reduction and intramedullary nail fixation 07/28/16 -Pain control with [place] prn and IV morphine prn -Lovenox for DVT prophylaxis per ortho, plan to d/c on Xarelto -PT consulted, WBAT -Discharg [place] on 08/03 //Liver Cancer: presented on hospice, however the patient is now removing himself off hospice for hip surgery -patient's end stage liver cancer remains unchanged and patient would likely benefit from going back on hospice after recovering from hip surgery //Dysphagia with Oropharyngeal Candidiasis: white plaques on posterior oropharynx/tongue on exam, with reported dysphagia -Improving. Continue on Fluconazole 150mg daily x14 days -Continue Magic Mouthwash 5ml tidac -swallow eval with ST -Soft diet with nectar thick liquids. // 2 deep tissue injuries on coccyx and left ischium. Calazine barrier cream BID and as need , also place patient in specialty bed. Discussed with wound care. GERD: chronic, continue PPI Bradycardia s/p Pacer, HTN, CAD: all chronic, continue patient's metoprolol with hold parameters. Last patient. Cathartics ordered. DVT Prophylaxis: Lovenox Discharge Planning patient has had a bowel movement. Discharge to [place] on 08/03 -after [place], patient may go back on hospice Kindra Deluca MD Aug 03, 2016 12:50
[2016-08-11] MEDS ORDERED: BEDSIDE COMMODE1 MI1 (13:17)
[2016-08-11] MEDS ORDERED: GETGO ROLLING W1 MI1 (13:17)
[2016-08-15] MEDS ORDERED: FLEE5TAB PO (08:59)
[2016-08-15] MEDS ORDERED: MORP1TAB24 PO (08:59)
[2016-08-15] MEDS ORDERED: HYDR-3580 PO (08:59)
[2016-08-15] MEDS ORDERED: OYST250T4 PO (08:59)
[2016-08-15] MEDS ORDERED: PANT20 PO (08:59)
[2016-08-15] MEDS ORDERED: XARE10TA PO (08:59)
== END 2016-08-03 14:41 | DRG 481 ==
LOC: NEPE 00:06 → OBSVTOIN 02:59 → NEDA 02:59 → NEPFCDU 05:22 → N06B 13:32
PROVIDERS: ADMIT Hospitalist; ATTEND Hospitalist
PROC: 0QS706Z Reposition Left Upper Femur with Intramedullary Internal Fixation Device, Open Approach (ICD-10-PCS; principal; 2016-07-28 11:30)
DX: S72.142A Displaced intertrochanteric fracture of left femur, initial encounter for closed fracture (principal); C22.9 Malignant neoplasm of liver, not specified as primary or secondary; B37.89 Other sites of candidiasis; B37.0 Candidal stomatitis; R13.10 Dysphagia, unspecified; R00.1 Bradycardia, unspecified; K21.9 Gastro-esophageal reflux disease without esophagitis; I10 Essential (primary) hypertension; Z86.73 Personal history of transient ischemic attack (TIA), and cerebral infarction without residual deficits; K59.00 Constipation, unspecified; I25.10 Atherosclerotic heart disease of native coronary artery without angina pectoris; Z87.891 Personal history of nicotine dependence; Z95.0 Presence of cardiac pacemaker; Z85.828 Personal history of other malignant neoplasm of skin; Z95.5 Presence of coronary angioplasty implant and graft; W18.11XA Fall from or off toilet without subsequent striking against object, initial encounter; Y92.002 Bathroom of unspecified non-institutional (private) residence as the place of occurrence of the external cause
CPT/HCPCS: 71010; 73502; 73552; 74000; 76000; 80048; 82306; 83735; 85014; 85018; 85025; 85610; 85730; 93005; 96374; C1713; J0690; J1580; J1650; J2270; J2370; J2405; J2710; J3010; J3370; J7050